=== PATIENT | female | born 1935 | race Caucasian/White ===

== ENCOUNTER 2018-04-13 12:26 | Emergency (ER) | payer MEDICARE, OTHER ==
[~2018-04-13] VITALS: Ht 162.6 cm; Wt 68.0 kg
[~2018-04-13 12:26] MED LIST: ALBU90OI INH; ASPI325 PO; ASPI81CH PO; AVAPRO PO; AZELASTINE137 MCG/0. INH; BREO ELLIPTA 11 EACH IH; CELE200 PO; CEPH500 PO; FURO20 PO; GABA300 PO; HTN MEDS; HYDCHL25 PO; HYDR1TAB94 PO; HYDSUL200 PO; HYDURE500 PO; IRBE150 PO; IRBE75 PO; LATA.005SO BOTHEYES; METO25 PO; METO25ER PO; NITR.6SL; OMEP40CA12 PO; PIRO10 PO; TORSE20 PO; WARF2 MT; WARF2 PO; WARF2.5 PO; WARF3 PO; WARFARIN MT; ZOLP5 PO
[2018-04-13 12:46] LABS: Hematocrit 40.5 % (33.0-51.0); Hemoglobin 13.2 g/dL (11.5-16.0); Mean Corpuscular HGB 37.2 pg (26.0-34.0); Mean Corpuscular HGB Conc 32.6 g/dL (31.5-36.5); Mean Corpuscular Volume 114 fL (80-100); Mean Platelet Volume 10.5 fL (9.1-12.4); Platelet Count 277 K/mm3 (150-400); RDW Coefficient Variation 12.9 % (11.7-14.2); RDW Standard Deviation 54.3 fL (35.1-46.3); Red Blood Cell Count 3.55 M/mm3 (3.80-5.20)
[2018-04-13] MEDS ORDERED: TORSE20 (14:11)
[2018-04-13] MEDS ORDERED: VOLTAREN100 GM (14:11)
[2018-04-13] MEDS ORDERED: Zanaflex4 MG (14:11)
[2018-04-13] MEDS ORDERED: Coumadin2 MG (14:11)
[2018-04-13] MEDS ORDERED: Neurontin300 MG (14:11)
[2018-04-13] MEDS ORDERED: Hydrocodone-Ap1 EA23 (14:11)
[2018-04-13] MEDS ORDERED: HYDURE500 (14:11)
[2018-04-13] MEDS ORDERED: Symbicort 16010.2 GM (14:11)
[2018-04-13] MEDS ORDERED: IMIQUIMOD1 EACH (14:11)
[2018-04-13] MEDS ORDERED: NITR.4SL (14:11)
[2018-04-13] MEDS ORDERED: Coumadin3 MG (14:11)
[2018-04-13] MEDS ORDERED: Avapro150 MG (14:11)
[2018-04-13] MEDS ORDERED: ALBU90OI6 (14:11)
[2018-04-13] MEDS ORDERED: Metoprolol Tart25 MG (14:11)
[2018-04-13 14:13] LABS: Anion Gap 5 mmol/L (6-16); Blood Urea Nitrogen 32 mg/dL (8-24); Bun/Creatinine Ratio 36.9 (12.0-20.0); CO2, Blood 28 mmol/L (21-32); Calcium, Blood 9.1 mg/dL (8.5-10.1); Chloride, Blood 107 mmol/L (98-108); Creatinine, Blood 0.87 mg/dL (0.40-1.00); Glomerular Filtration Rate >60 (60-); Glucose, Blood 79 mg/dL (70-99); Potassium, Blood 4.8 mmol/L (3.5-5.5); Sodium, Blood 140 mmol/L (136-145)
[2018-04-13 14:14] LABS: BASOPHILS PERCENT MAN 0 % (0-2); EOSINOPHILS PERCENT MAN 0 % (0-6); LYMPHOCYTES ABSOLUTE MAN 1.34 K/mm3 (0.84-5.20); LYMPHOCYTES PERCENT MAN 10 % (21-46); MONOCYTES ABSOLUTE MAN 1.07 K/mm3 (0.16-1.47); MONOCYTES PERCENT MAN 8 % (4-13); NEUTROPHILS ABSOLUTE MAN 10.98 K/mm3 (1.96-9.15); SEG NEUTROPHILS PERCENT MAN 82 % (41-73); TOTAL CELLS COUNTED 100
[2018-04-13 14:20] LABS: International Normalized Ratio 3.89; Prothrombin Time Results 37.1 Sec (9.7-11.5)
== END 2018-04-13 14:35 | disposition home or self-care (01) ==
LOC: ER 12:26
PROVIDERS: Emergency Medicine
DX: S09.90XA Unspecified injury of head, initial encounter (principal); S16.1XXA Strain of muscle, fascia and tendon at neck level, initial encounter; F41.9 Anxiety disorder, unspecified; I10 Essential (primary) hypertension; Z79.899 Other long term (current) drug therapy; Z79.01 Long term (current) use of anticoagulants; Z87.891 Personal history of nicotine dependence; W10.9XXA Fall (on) (from) unspecified stairs and steps, initial encounter
CPT/HCPCS: 70450; 71046; 72125; 80048; 85025; 85610; 85730; 99284-25

== ENCOUNTER 2018-09-28 10:40 | Emergency (ER) | payer MEDICARE, OTHER ==
[~2018-09-28] VITALS: Ht 162.6 cm; Wt 72.6 kg
[~2018-09-28 10:40] MED LIST changes: +ALBU90OI6; +Avapro150 MG; +Coumadin2 MG; +Coumadin3 MG; +HYDURE500; +Hydrocodone-Ap1 EA23; +IMIQUIMOD1 EACH; +Metoprolol Tart25 MG; +NITR.4SL; +Neurontin300 MG; +Symbicort 16010.2 GM; +TORSE20; +VOLTAREN100 GM; +Zanaflex4 MG
== END 2018-09-28 12:03 | disposition home or self-care (01) ==
LOC: ER 10:40
DX: S00.03XA Contusion of scalp, initial encounter (principal); M25.512 Pain in left shoulder; G89.29 Other chronic pain; W01.198A Fall on same level from slipping, tripping and stumbling with subsequent striking against other object, initial encounter; Z88.6 Allergy status to analgesic agent; Z79.899 Other long term (current) drug therapy; Z79.01 Long term (current) use of anticoagulants; F41.9 Anxiety disorder, unspecified; I10 Essential (primary) hypertension; I48.91 Unspecified atrial fibrillation
CPT/HCPCS: 36415; 70450; 99284-25

== ENCOUNTER 2018-10-08 11:15 | Emergency (ER) | payer MEDICARE, OTHER ==
[~2018-10-08] VITALS: Ht 154.9 cm; Wt 72.6 kg
[~2018-10-08 11:15] MED LIST changes: -ALBU90OI6; +ALBU90OI6 PO; -Avapro150 MG; +Avapro150 MG PO; -NITR.4SL; +NITR.4SL PO; -Symbicort 16010.2 GM; +Symbicort 16010.2 GM PO; -VOLTAREN100 GM; +VOLTAREN100 GM TOP
== END 2018-10-08 12:07 | disposition home or self-care (01) ==
LOC: ER 11:15
DX: S91.011A Laceration without foreign body, right ankle, initial encounter (principal); I83.91 Asymptomatic varicose veins of right lower extremity; Z23 Encounter for immunization; I10 Essential (primary) hypertension; Z88.6 Allergy status to analgesic agent; Z79.899 Other long term (current) drug therapy; Z79.01 Long term (current) use of anticoagulants; W26.8XXA Contact with other sharp object(s), not elsewhere classified, initial encounter
CPT/HCPCS: 90471; 90714; 99283

== ENCOUNTER → 2018-10-15 | Outpatient (CLI) | payer MEDICARE, OTHER ==
[~2018-10-15] MED LIST changes: +ALBU90OI6; -ALBU90OI6 PO; +Avapro150 MG; -Avapro150 MG PO; +NITR.4SL; -NITR.4SL PO; +Symbicort 16010.2 GM; -Symbicort 16010.2 GM PO; +VOLTAREN100 GM; -VOLTAREN100 GM TOP
[2018-10-15 12:44] LABS: BASOPHILS ABSOLUTE AUTO 0.02 K/mm3 (0.00-0.23); BASOPHILS PERCENT AUTO 0 % (0-2); EOSINOPHILS ABSOLUTE AUTO 0.04 K/mm3 (0.00-0.68); EOSINOPHILS PERCENT AUTO 1 % (0-6); Hematocrit 37.4 % (33.0-51.0); Hemoglobin 12.6 g/dL (11.5-16.0); IMMATURE GRAN ABSOLUTE AUTO 0.11 K/mm3 (0.00-0.10); IMMATURE GRAN PERCENT AUTO 2 % (0-1); LYMPHOCYTES ABSOLUTE AUTO 0.93 K/mm3 (0.84-5.20); LYMPHOCYTES PERCENT AUTO 15 % (21-46); MONOCYTES ABSOLUTE AUTO 0.77 K/mm3 (0.16-1.47); MONOCYTES PERCENT AUTO 13 % (4-13); Mean Corpuscular HGB Conc 33.7 g/dL (31.5-36.5); Mean Corpuscular Volume 104 fL (80-100); Mean Platelet Volume 9.9 fL (9.1-12.4); NEUTROPHILS ABSOLUTE AUTO 4.26 K/mm3 (1.96-9.15); NEUTROPHILS PERCENT AUTO 69 % (41-73); Platelet Count 468 K/mm3 (150-400); RDW Coefficient Variation 14.8 % (11.7-14.2); RDW Standard Deviation 55.2 fL (35.1-46.3); White Blood Cell Count 6.13 K/mm3 (4.00-11.30)
[2018-10-15 12:55] LABS: Albumin, Blood 3.3 g/dL (3.4-5.0); Albumin/Globulin Ratio 0.9 (0.8-1.8); Bilirubin, Total 0.7 mg/dL (0.1-1.0); Bun/Creatinine Ratio 26.9 (12.0-20.0); Calcium, Blood 8.7 mg/dL (8.5-10.1); Creatinine, Blood 1.3 mg/dL (0.40-1.00); Globulin, Blood 3.6 g/dL (2.2-4.0); Potassium, Blood 3.3 mmol/L (3.5-5.5); Total Protein, Blood 6.9 g/dL (6.4-8.2)
== END | disposition home or self-care (01) ==
LOC: LAB EV 12:37 → LAB SHORT 12:37
PROVIDERS: Physician Assistant
DX: I50.9 Heart failure, unspecified (principal); R06.02 Shortness of breath; R60.9 Edema, unspecified
CPT/HCPCS: 80053; 83690; 83880; 85025

== ENCOUNTER 2018-10-25 09:17 | Inpatient (IN) | payer MEDICARE, OTHER ==
[~2018-10-25] VITALS: Ht 154.9 cm; Wt 74.5 kg
[~2018-10-25 09:17] MED LIST changes: -ALBU90OI6; +ALBU90OI6 PO; -Avapro150 MG; +Avapro150 MG PO; -NITR.4SL; +NITR.4SL PO; -Symbicort 16010.2 GM; +Symbicort 16010.2 GM PO; -VOLTAREN100 GM; +VOLTAREN100 GM TOP
[2018-10-25] MEDS ORDERED: WARF2 PO (11:55)
[2018-10-25] MEDS ORDERED: TORSE20 PO (12:28)
[2018-10-25] MEDS ORDERED: POTCHL20ER PO ×2 (12:38→13:47)
[2018-10-25] MEDS ORDERED: Norco 10-325 T1 EACH PO (12:39)
[2018-10-25] MEDS ORDERED: METO25 PO (12:39)
[2018-10-25] MEDS ORDERED: DOCU100 PO (13:44)
[2018-10-25] MEDS ORDERED: METO2.5 PO (13:46)
[2018-10-25] MEDS ORDERED: DICLOFENAC GEL TOP (13:56)
--- NOTE | 2018-10-25 14:51 | NUR ---
PT ADMITTED PT ADMITTED AT 1330. PT IN STABLE CONDITION WITH VSS. PT IN EXTREME PAIN WITH MOVEMENT. PT GIVEN DILADID UPON ADMIT. PT GIVEN SECOND DOSE OF DILADID PROIR TO TRANSFER FOR MRI. PT ORINETED TO ROOM & FAMILY AT BEDSIDE. CALL LIGHT IN REACH. WILL CONTINUE TO MONITOR
[2018-10-25 16:45] LABS: International Normalized Ratio 1.53; Prothrombin Time Results 15.6 Sec (9.7-11.5)
--- NOTE | 2018-10-25 17:23 | NUR ---
SHIFT SUMMARY PT CONTINUES TO HAVE INTENSE PAIN WITH MOVEMENT. PT MEDICATED PER EMAR. MRI OF HIP COMPLETED THIS SHIFT. NO OTHER CHANGES IN ASSESSMENT AT THIS TIME. PT VOIDING WITH THE BEDPAN. CALL LIGHT IN REACH. WILL CONTINUE TO MONITOR UNTIL TURNOVER IS COMPLETE.
[2018-10-25] MEDS ORDERED: WARF3 PO (18:14)
[2018-10-26 02:26] LABS: Source, Urine Catheter
[2018-10-26 02:29] LABS: Bilirubin, Urine Neg (Neg); Blood, Urine Neg (Neg); Glucose Qualitative, Urine Neg (Neg); Ketones, Urine Neg (Neg); Leukocyte Esterase, Urine Neg (Neg); Nitrite, Urine Neg (Neg); Protein, Urine Neg (Neg); Urobilinogen, Urine NORM (Normal)
[2018-10-26 02:45] LABS: Appearance, Urine Clear (Clear); Color, Urine Yellow (P-Yellow)
[2018-10-26 05:16] LABS: BASOPHILS ABSOLUTE AUTO 0.06 K/mm3 (0.00-0.23); BASOPHILS PERCENT AUTO 1 % (0-2); EOSINOPHILS ABSOLUTE AUTO 0.09 K/mm3 (0.00-0.68); EOSINOPHILS PERCENT AUTO 1 % (0-6); Hemoglobin 13.5 g/dL (11.5-16.0); IMMATURE GRAN ABSOLUTE AUTO 0.12 K/mm3 (0.00-0.10); IMMATURE GRAN PERCENT AUTO 1 % (0-1); LYMPHOCYTES PERCENT AUTO 17 % (21-46); MONOCYTES ABSOLUTE AUTO 1.61 K/mm3 (0.16-1.47); MONOCYTES PERCENT AUTO 17 % (4-13); Mean Corpuscular HGB 34.8 pg (26.0-34.0); Mean Corpuscular HGB Conc 31.4 g/dL (31.5-36.5); Mean Platelet Volume 10.6 fL (9.1-12.4); NEUTROPHILS ABSOLUTE AUTO 5.97 K/mm3 (1.96-9.15); NEUTROPHILS PERCENT AUTO 63 % (41-73); Platelet Count 341 K/mm3 (150-400); RDW Coefficient Variation 14.7 % (11.7-14.2); RDW Standard Deviation 59.6 fL (35.1-46.3); Red Blood Cell Count 3.88 M/mm3 (3.80-5.20); White Blood Cell Count 9.45 K/mm3 (4.00-11.30)
[2018-10-26 05:17] LABS: Mean Corpuscular Volume 111 fL (80-100)
[2018-10-26 05:38] LABS: Alanine Aminotransfer (ALT/SGP 17 U/L (12-78); Albumin, Blood 3.1 g/dL (3.4-5.0); Albumin/Globulin Ratio 0.9 (0.8-1.8); Alk Phos 97 U/L (50-136); Anion Gap 6 mmol/L (6-16); Aspartate Aminotrans (AST/SGOT 22 U/L (12-37); Bilirubin, Total 0.9 mg/dL (0.1-1.0); Blood Urea Nitrogen 20 mg/dL (8-24); Bun/Creatinine Ratio 25.5 (12.0-20.0); CO2, Blood 28 mmol/L (21-32); Calcium, Blood 9.4 mg/dL (8.5-10.1); Chloride, Blood 101 mmol/L (98-108); Creatinine, Blood 0.78 mg/dL (0.40-1.00); Globulin, Blood 3.6 g/dL (2.2-4.0); Glomerular Filtration Rate >60 (60-); Glucose, Blood 88 mg/dL (70-99); Sodium, Blood 135 mmol/L (136-145); Total Protein, Blood 6.7 g/dL (6.4-8.2)
[2018-10-26 05:44] LABS: International Normalized Ratio 1.61; Prothrombin Time Results 16.3 Sec (9.7-11.5)
--- NOTE | 2018-10-26 06:18 | NUR ---
SHIFT SUMMARY PT A/O C/O PAIN IN R HIP AND MEDICATED PER EMAR X3. DR RODRIGUEZ ORDERED THOMSON FOR COMFORT/POSITIONING SINCE SHE COULD NOT TOLERATE BED [place] AT ALL FOR URINATING. SHE WAS ABLE TO SLEEP T/O NIGHT AFTER THE THOMSON. CALL LIGHT IN REACH.
--- NOTE | 2018-10-26 11:55 | NUR ---
BOWEL PROTICOL BOWEL PROTICOL INITIATED ON PT. PT HAS NOT HAD A BM FOR 3 DAYS & IS RECIEVING NARCOTICS. PT GIVEN COLACE & MILK OF MAGNESIA THIS SHIFT.
--- NOTE | 2018-10-26 17:45 | NUR ---
SHIFT SUMMARY PT PAIN HAS IMPROVED GREATLY COMPARED TO YESTERDAY. PT HAS NEEDED DILADID TWICE THIS SHIFT. PT TOLERATED SITTING UP ON THE SIDE OF BED WITH THERAPY & TAUGHT EXERCISES TO PRACTICE WHEN IN BED. INSENTIVE SPIROMETER GIVEN TO PT & THIS RN EDUCATED PT ON USE. CATHETER INTACT & DRAINING. NO OTHER CHANGES IN ASSESSMENT AT THIS TIME. WILL CONTINUE TO MONITOR UNTIL TURNOVER IS COMPLETE. VSS.
[2018-10-27 05:43] LABS: International Normalized Ratio 1.63; Prothrombin Time Results 16.5 Sec (9.7-11.5)
--- NOTE | 2018-10-27 07:37 | NUR ---
AT 0655, MARVIN DUNHAM ENTERED ROOM TO JOSH THOMSON. PT STRICTLY REFUSED. NURSE WILL NOTIFY DOCTOR.
--- NOTE | 2018-10-27 07:39 | NUR ---
Rn summary: Patient is alert and oriented. Pt is very painful with any movement. Pt c/o R heel hurting, has dry skin with a crack in her heel, lotion applied and varun mepilex to heels for protection. Pt was medicated x2 for pain with dilaudid 0.5mg and has rested well. Pt has a spencer cath, cath care given. Pt declined having the spencer removed this am due to pain with any movement. Pt very painful to even reposition up in bed, juanito when HOB is lowered down, states it pulls on her Rt leg too much. heels floated. Call light in reach. Report to day shift RN.
[2018-10-27 11:55] LABS: BASOPHILS ABSOLUTE AUTO 0.04 K/mm3 (0.00-0.23); BASOPHILS PERCENT AUTO 0 % (0-2); EOSINOPHILS ABSOLUTE AUTO 0.01 K/mm3 (0.00-0.68); EOSINOPHILS PERCENT AUTO 0 % (0-6); Hematocrit 36.7 % (33.0-51.0); Hemoglobin 12.1 g/dL (11.5-16.0); IMMATURE GRAN ABSOLUTE AUTO 0.12 K/mm3 (0.00-0.10); IMMATURE GRAN PERCENT AUTO 1 % (0-1); LYMPHOCYTES ABSOLUTE AUTO 0.91 K/mm3 (0.84-5.20); LYMPHOCYTES PERCENT AUTO 8 % (21-46); MONOCYTES ABSOLUTE AUTO 1.58 K/mm3 (0.16-1.47); MONOCYTES PERCENT AUTO 13 % (4-13); Mean Corpuscular HGB 34.6 pg (26.0-34.0); Mean Platelet Volume 10.2 fL (9.1-12.4); NEUTROPHILS ABSOLUTE AUTO 9.34 K/mm3 (1.96-9.15); NEUTROPHILS PERCENT AUTO 78 % (41-73); Platelet Count 306 K/mm3 (150-400); RDW Coefficient Variation 14.6 % (11.7-14.2); RDW Standard Deviation 55.6 fL (35.1-46.3)
[2018-10-27 11:56] LABS: Mean Corpuscular Volume 105 fL (80-100)
[2018-10-27 12:12] LABS: Anion Gap 8 mmol/L (6-16); Blood Urea Nitrogen 18 mg/dL (8-24); Bun/Creatinine Ratio 24.4 (12.0-20.0); CO2, Blood 28 mmol/L (21-32); Calcium, Blood 8.4 mg/dL (8.5-10.1); Chloride, Blood 100 mmol/L (98-108); Creatinine, Blood 0.74 mg/dL (0.40-1.00); Glomerular Filtration Rate >60 (60-); Glucose, Blood 109 mg/dL (70-99); Potassium, Blood 3.9 mmol/L (3.5-5.5); Sodium, Blood 136 mmol/L (136-145)
--- NOTE | 2018-10-27 18:01 | NUR ---
SHIFT SUMMARY PT AXO. AFEBRILE AT THIS TIME THOUGH HAD FEVER WITH CHILLS AND ACHE THIS MORNING, MEDICATED PER EMAR, DR SANDERS AWARE. PT HYPOTENSIVE AT 1039, FLUIDS GIVEN AND DR SANDERS AWARE. PT REFUSED THOMSON DC. URINE TO BE COLLECTED FROM THOMSON PER ORDER. BED IN LOW POSITION, CALL LIGHT WITHIN REACH. CHEST X-RAY THIS SHIFT WELL. IV PATENT AND SALINE LOCKED.
--- NOTE | 2018-10-27 19:38 | NUR ---
WHEN TALKING WITH DR SANDERS, THOMSON OKAY TO LEAVE IN TONIGHT AND TRY TO DC AGAIN IN THE MORNING.
--- NOTE | 2018-10-27 20:33 | NUR ---
PTS TEMP 102.3, TYLENOL 650MG GIVEN AND ICE PACK TO ABDOMEN. PTS ROOM TEMPERATURE LOWER (WAS SET AT 85 DEGREES) AND EXTRA BLANKETS REMOVED.
[2018-10-27 22:48] LABS: Source, Urine Catheter
[2018-10-27 22:51] LABS: Bilirubin, Urine Neg (Neg); Blood, Urine 2+ (Neg); Glucose Qualitative, Urine Neg (Neg); Ketones, Urine Neg (Neg); Leukocyte Esterase, Urine 1+ (Neg); Nitrite, Urine Neg (Neg); Protein, Urine Neg (Neg); Specific Gravity, Urine 1.015 (1.003-1.022); Urobilinogen, Urine NORM (Normal)
[2018-10-27 23:02] LABS: Appearance, Urine Clear (Clear); Color, Urine Yellow (P-Yellow)
[2018-10-27 23:03] LABS: Bacteria Rare /hpf; Hyaline Casts 50-100 /lpf (0-2); Mucus Light (0-Heavy); Squamous Epithelial Cells Few /hpf (Few)
--- NOTE | 2018-10-28 05:14 | NUR ---
83 Y/O FEMALE RESTED COMFORTABLY IN BED ALL EVENING. PTS ABDOMEN IS FIRM AND DISTENDED. PT DENIES NEED FOR PAIN OR NAUSEA MEDS. THIS NURSE OBTAINED UA LAST EVENING. PT WAS STARTED ON VANCOMYCIN AND ROCEPHIN LAST EVENING. PT ALERT AND ORIENTED X 3. PTS THOMSON DRAINING CLOUDY YELLOW FLUID. PTS BED ALARM ACTIVATED ALL EVENING, BED LOW POSITION, CALL LIGHT AT SIDE.
[2018-10-28 05:31] LABS: International Normalized Ratio 1.72; Prothrombin Time Results 17.4 Sec (9.7-11.5)
[2018-10-28 07:33] LABS: BASOPHILS ABSOLUTE AUTO 0.03 K/mm3 (0.00-0.23); BASOPHILS PERCENT AUTO 0 % (0-2); EOSINOPHILS ABSOLUTE AUTO 0.07 K/mm3 (0.00-0.68); EOSINOPHILS PERCENT AUTO 1 % (0-6); Hematocrit 36.4 % (33.0-51.0); Hemoglobin 11.9 g/dL (11.5-16.0); IMMATURE GRAN PERCENT AUTO 1 % (0-1); LYMPHOCYTES ABSOLUTE AUTO 0.98 K/mm3 (0.84-5.20); LYMPHOCYTES PERCENT AUTO 12 % (21-46); MONOCYTES ABSOLUTE AUTO 1.32 K/mm3 (0.16-1.47); MONOCYTES PERCENT AUTO 16 % (4-13); Mean Corpuscular HGB 35.3 pg (26.0-34.0); Mean Corpuscular HGB Conc 32.7 g/dL (31.5-36.5); Mean Platelet Volume 10.1 fL (9.1-12.4); NEUTROPHILS ABSOLUTE AUTO 6.04 K/mm3 (1.96-9.15); NEUTROPHILS PERCENT AUTO 71 % (41-73); Platelet Count 281 K/mm3 (150-400); RDW Coefficient Variation 14.2 % (11.7-14.2); RDW Standard Deviation 55.9 fL (35.1-46.3); Red Blood Cell Count 3.37 M/mm3 (3.80-5.20); White Blood Cell Count 8.54 K/mm3 (4.00-11.30)
[2018-10-28 07:39] LABS: Mean Corpuscular Volume 108 fL (80-100)
[2018-10-28 07:47] LABS: Anion Gap 8 mmol/L (6-16); Blood Urea Nitrogen 20 mg/dL (8-24); Bun/Creatinine Ratio 25.7 (12.0-20.0); CO2, Blood 29 mmol/L (21-32); Calcium, Blood 8.1 mg/dL (8.5-10.1); Chloride, Blood 102 mmol/L (98-108); Creatinine, Blood 0.78 mg/dL (0.40-1.00); Glomerular Filtration Rate >60 (60-); Glucose, Blood 82 mg/dL (70-99); Potassium, Blood 3.5 mmol/L (3.5-5.5); Sodium, Blood 139 mmol/L (136-145)
--- NOTE | 2018-10-28 18:24 | NUR ---
SHIFT SUMMARY PT AXO, PLEASANT AND COOPERATIVE WITH CARE. VSS. IV PATENT AND SALINE LOCKED. ALIX MORENO'D AT 1720. PT HAD COMPLETE BEDBATH AND BEDDING CHANGE AT THAT TIME. PT WAS ABLE TO ROLL FROM SIDE TO SIDE WITH MINIMAL PAIN. PT ALSO DANGLED AT EDGE OF BED AND THEN STOOD, TOOK TWO SMALL STEPS FORWARD AND TWO SMALL STEPS BACK. PT HAD BEEN REFUSING REPOSITIONING PRIOR TO THAT. SKIN INTACT. MEDICATED FOR PAIN PER EMAR.
--- NOTE | 2018-10-29 06:03 | NUR ---
83 Y/O FEMALE RESTED COMFORTABLY ALL EVENING. PTS ABLE TO STAND, PIVOT AND TRANSFER X 2 STANDBY ASSIST TO BSC AND VOIDED ADEQUATE AMOUNTS CLEAR YELLOW FLUID. PTS BED IN LOW POSITION, CALL LIGHT AT SIDE. PTS WAS MEDICATED WITH NORCO 750MG X2 THROUGHOUT SHIFT FOR RIGHT HIP DISCOMFORT. PT ALERT AND ORIENTED X3. PTS SPOUSE WAS AT BEDSIDE AT BEGINNING OF SHIFT. PTS BILATERAL FOOT PUSH/PULLS STRONG AND EQUAL.
[2018-10-29 07:01] LABS: BASOPHILS ABSOLUTE AUTO 0.05 K/mm3 (0.00-0.23); BASOPHILS PERCENT AUTO 1 % (0-2); EOSINOPHILS ABSOLUTE AUTO 0.11 K/mm3 (0.00-0.68); EOSINOPHILS PERCENT AUTO 2 % (0-6); Hemoglobin 11.8 g/dL (11.5-16.0); IMMATURE GRAN ABSOLUTE AUTO 0.07 K/mm3 (0.00-0.10); IMMATURE GRAN PERCENT AUTO 1 % (0-1); LYMPHOCYTES ABSOLUTE AUTO 1.05 K/mm3 (0.84-5.20); LYMPHOCYTES PERCENT AUTO 17 % (21-46); MONOCYTES ABSOLUTE AUTO 1.03 K/mm3 (0.16-1.47); MONOCYTES PERCENT AUTO 16 % (4-13); Mean Corpuscular HGB Conc 32.8 g/dL (31.5-36.5); Mean Corpuscular Volume 107 fL (80-100); Mean Platelet Volume 10.2 fL (9.1-12.4); NEUTROPHILS ABSOLUTE AUTO 4.05 K/mm3 (1.96-9.15); NEUTROPHILS PERCENT AUTO 64 % (41-73); Platelet Count 307 K/mm3 (150-400); RDW Coefficient Variation 13.9 % (11.7-14.2); RDW Standard Deviation 54.4 fL (35.1-46.3); Red Blood Cell Count 3.37 M/mm3 (3.80-5.20); White Blood Cell Count 6.36 K/mm3 (4.00-11.30)
[2018-10-29 07:24] LABS: Anion Gap 5 mmol/L (6-16); Blood Urea Nitrogen 26 mg/dL (8-24); CO2, Blood 31 mmol/L (21-32); Calcium, Blood 8.4 mg/dL (8.5-10.1); Chloride, Blood 101 mmol/L (98-108); Creatinine, Blood 0.79 mg/dL (0.40-1.00); Glomerular Filtration Rate >60 (60-); Glucose, Blood 91 mg/dL (70-99); Potassium, Blood 3.3 mmol/L (3.5-5.5); Sodium, Blood 137 mmol/L (136-145)
[2018-10-29 12:42] LABS: International Normalized Ratio 3.26
[2018-10-29 20:24] LABS: Vancomycin, Trough 12.4 ug/mL (5.0-10.0)
--- NOTE | 2018-10-30 06:24 | NUR ---
83 Y/O FEMALE RESTED COMFORTABLY IN BED ALL EVENING. PT ABLE TO STAND, PIVOT AND TRANSFER TO [facility] X2 STANDBY ASSIST. PT HAPPY AND COOPERATIVE. PT TOOK NORCO X1 THIS SHIFT RIGHT HIP PAIN. PT DENIES NAUSEA. PTS BED ALARM INTACT, BED LOW POSITION, CALL LIGHT AT SIDE.
[2018-10-30 07:56] LABS: BASOPHILS ABSOLUTE AUTO 0.04 K/mm3 (0.00-0.23); BASOPHILS PERCENT AUTO 1 % (0-2); EOSINOPHILS ABSOLUTE AUTO 0.13 K/mm3 (0.00-0.68); EOSINOPHILS PERCENT AUTO 2 % (0-6); Hematocrit 35.6 % (33.0-51.0); Hemoglobin 11.4 g/dL (11.5-16.0); IMMATURE GRAN ABSOLUTE AUTO 0.09 K/mm3 (0.00-0.10); IMMATURE GRAN PERCENT AUTO 2 % (0-1); LYMPHOCYTES ABSOLUTE AUTO 1.09 K/mm3 (0.84-5.20); LYMPHOCYTES PERCENT AUTO 20 % (21-46); MONOCYTES ABSOLUTE AUTO 0.93 K/mm3 (0.16-1.47); MONOCYTES PERCENT AUTO 17 % (4-13); Mean Corpuscular Volume 109 fL (80-100); Mean Platelet Volume 10.5 fL (9.1-12.4); NEUTROPHILS PERCENT AUTO 58 % (41-73); Platelet Count 320 K/mm3 (150-400); RDW Standard Deviation 55.6 fL (35.1-46.3); Red Blood Cell Count 3.26 M/mm3 (3.80-5.20); White Blood Cell Count 5.48 K/mm3 (4.00-11.30)
[2018-10-30 08:11] LABS: Anion Gap 4 mmol/L (6-16); Blood Urea Nitrogen 29 mg/dL (8-24); Bun/Creatinine Ratio 33.4 (12.0-20.0); CO2, Blood 32 mmol/L (21-32); Calcium, Blood 8.4 mg/dL (8.5-10.1); Chloride, Blood 100 mmol/L (98-108); Creatinine, Blood 0.87 mg/dL (0.40-1.00); Glomerular Filtration Rate >60 (60-); Glucose, Blood 83 mg/dL (70-99); Potassium, Blood 3.8 mmol/L (3.5-5.5); Sodium, Blood 136 mmol/L (136-145)
[2018-10-30 09:32] LABS: Prothrombin Time Results 37.4 Sec (9.7-11.5)
--- NOTE | 2018-10-30 18:33 | NUR ---
PATIENT IS PLEASANT AND COOPERATIVE WITH CARES. SHE USES CALL LIGHT NEEDED AND IS ABLE TO STAND WITH FFW. SHE HAS BEEN ABLE TO AMBULATE SHORT DISTANCES AROUND HER ROOM WITH HER FFW. FAMILY HAS BEEN PRESENT THROUGH OUT THE DAY. NO NEW ISSUES.
[2018-10-31 04:48] LABS: BASOPHILS ABSOLUTE AUTO 0.06 K/mm3 (0.00-0.23); BASOPHILS PERCENT AUTO 1 % (0-2); EOSINOPHILS ABSOLUTE AUTO 0.19 K/mm3 (0.00-0.68); EOSINOPHILS PERCENT AUTO 3 % (0-6); Hematocrit 36.2 % (33.0-51.0); Hemoglobin 11.7 g/dL (11.5-16.0); IMMATURE GRAN PERCENT AUTO 2 % (0-1); LYMPHOCYTES ABSOLUTE AUTO 1.23 K/mm3 (0.84-5.20); LYMPHOCYTES PERCENT AUTO 21 % (21-46); MONOCYTES ABSOLUTE AUTO 0.86 K/mm3 (0.16-1.47); MONOCYTES PERCENT AUTO 15 % (4-13); Mean Corpuscular HGB Conc 32.3 g/dL (31.5-36.5); Mean Corpuscular Volume 108 fL (80-100); Mean Platelet Volume 10.4 fL (9.1-12.4); NEUTROPHILS PERCENT AUTO 58 % (41-73); Platelet Count 375 K/mm3 (150-400); RDW Coefficient Variation 13.6 % (11.7-14.2); RDW Standard Deviation 54.4 fL (35.1-46.3); Red Blood Cell Count 3.34 M/mm3 (3.80-5.20); White Blood Cell Count 5.84 K/mm3 (4.00-11.30)
--- NOTE | 2018-10-31 04:58 | NUR ---
SHIFT SUMMARY PT SLEPT IN CHAIR DURING THE NIGHT AFTER LYING IN BED FOR A SHORT PERIOD. PT C/O MUSCLE SPASMS IN LEGS AND REQUESTED PAIN MEDICATION, NORCO GIVEN. PT ALSO C/O MORE SWELLING IN LEGS, STATES IT'S GOTTEN WORSE TODAY. NO OTHER C/O'S NOTED DURING THE NIGHT, WILL CONTINUE TO MONITOR.
[2018-10-31 05:03] LABS: International Normalized Ratio 3.15; Prothrombin Time Results 30.1 Sec (9.7-11.5)
[2018-10-31 05:07] LABS: Anion Gap 8 mmol/L (6-16); Blood Urea Nitrogen 32 mg/dL (8-24); Bun/Creatinine Ratio 39.6 (12.0-20.0); CO2, Blood 30 mmol/L (21-32); Calcium, Blood 8.9 mg/dL (8.5-10.1); Chloride, Blood 98 mmol/L (98-108); Creatinine, Blood 0.81 mg/dL (0.40-1.00); Glomerular Filtration Rate >60 (60-); Glucose, Blood 88 mg/dL (70-99); Potassium, Blood 3.9 mmol/L (3.5-5.5); Sodium, Blood 136 mmol/L (136-145)
[2018-10-31] MEDS ORDERED: BISA10S PR (12:23)
[2018-10-31] MEDS ORDERED: DOXY100 PO (12:24)
[2018-10-31] MEDS ORDERED: GABA300 PO (12:26)
[2018-10-31] MEDS ORDERED: NUTRISOURCE FIBER PO (12:26)
== END 2018-10-31 12:17 | DRG 558 ==
LOC: ER 09:17 → MEDS 09:18 → ENPENDDIS 10-31 09:14 → MEDS 10-31 12:17
PROVIDERS: Internal Medicine Endocrinology, Diabetes & Metabolism; Pharmacist; ADMIT Student in an Organized Health Care Education/Training Program
DX: M66.851 Spontaneous rupture of other tendons, right thigh (principal); N39.0 Urinary tract infection, site not specified; N17.9 Acute kidney failure, unspecified; I12.9 Hypertensive chronic kidney disease with stage 1 through stage 4 chronic kidney disease, or unspecified chronic kidney disease; N18.3 Chronic kidney disease, stage 3 (moderate); G47.33 Obstructive sleep apnea (adult) (pediatric); E87.6 Hypokalemia; D72.9 Disorder of white blood cells, unspecified; M79.2 Neuralgia and neuritis, unspecified; S76.911A Strain of unspecified muscles, fascia and tendons at thigh level, right thigh, initial encounter; J44.9 Chronic obstructive pulmonary disease, unspecified; Z79.01 Long term (current) use of anticoagulants; G89.29 Other chronic pain; I48.2 Chronic atrial fibrillation; M06.9 Rheumatoid arthritis, unspecified; M51.36 Other intervertebral disc degeneration, lumbar region; Z87.891 Personal history of nicotine dependence; I95.9 Hypotension, unspecified; R50.9 Fever, unspecified
CPT/HCPCS: 36415; 71046; 72100; 73502; 73721; 74183; 80048; 80053; 80202; 81001; 81003; 83605; 85025; 85610; 85651; 86140; 87040; 87077; 87086; 87186; 94640; 94760; 96374; 96376; 97110; 97116; 97162; 97166; 97530; 97535; 99285-25; A9577; G0378; J0696; J1170; J1650; J3370; J7030; J7050

== ENCOUNTER → 2018-11-26 | Outpatient (CLI) | payer MEDICARE, OTHER ==
[~2018-11-26] MED LIST changes: +BISA10S PR; +DICLOFENAC GEL TOP; +DOCU100 PO; +DOXY100 PO; +METO2.5 PO; +NUTRISOURCE FIBER PO; +Norco 10-325 T1 EACH PO; +POTCHL20ER PO
== END | disposition home or self-care (01) ==
LOC: LAB SHORT 12:14 → LAB EV 12:14
DX: L03.116 Cellulitis of left lower limb (principal)
CPT/HCPCS: 87070; 87077; 87186; 87205

== ENCOUNTER → 2019-03-06 | Outpatient (CLI) | payer MEDICARE, OTHER | END | disposition home or self-care (01) | LOC: PLD 07:48 → LAB SHORT 07:48 | DX: D04.62 Carcinoma in situ of skin of left upper limb, including shoulder (principal); C08.0 Malignant neoplasm of submandibular gland; L82.1 Other seborrheic keratosis; L11.9 Acantholytic disorder, unspecified | CPT/HCPCS: 88305 ==

== ENCOUNTER → 2019-04-09 | Outpatient (CLI) | payer MEDICARE, OTHER ==
[2019-04-09 14:56] LABS: BASOPHILS ABSOLUTE AUTO 0.03 K/mm3 (0.00-0.23); BASOPHILS PERCENT AUTO 0 % (0-2); EOSINOPHILS ABSOLUTE AUTO 0.06 K/mm3 (0.00-0.68); EOSINOPHILS PERCENT AUTO 1 % (0-6); Hematocrit 38.6 % (33.0-51.0); Hemoglobin 12.9 g/dL (11.5-16.0); IMMATURE GRAN ABSOLUTE AUTO 0.27 K/mm3 (0.00-0.10); IMMATURE GRAN PERCENT AUTO 4 % (0-1); LYMPHOCYTES ABSOLUTE AUTO 1.24 K/mm3 (0.84-5.20); LYMPHOCYTES PERCENT AUTO 17 % (21-46); MONOCYTES ABSOLUTE AUTO 0.57 K/mm3 (0.16-1.47); MONOCYTES PERCENT AUTO 8 % (4-13); Mean Corpuscular HGB 35.6 pg (26.0-34.0); Mean Corpuscular HGB Conc 33.4 g/dL (31.5-36.5); Mean Corpuscular Volume 107 fL (80-100); Mean Platelet Volume 9.7 fL (9.1-12.4); NEUTROPHILS ABSOLUTE AUTO 5.24 K/mm3 (1.96-9.15); NEUTROPHILS PERCENT AUTO 71 % (41-73); Platelet Count 336 K/mm3 (150-400); RDW Standard Deviation 58.3 fL (35.1-46.3); Red Blood Cell Count 3.62 M/mm3 (3.80-5.20); White Blood Cell Count 7.41 K/mm3 (4.00-11.30)
[2019-04-09 15:04] LABS: Albumin, Blood 3.2 g/dL (3.4-5.0); Albumin/Globulin Ratio 0.9 (0.8-1.8); Bilirubin, Total 0.6 mg/dL (0.1-1.0); Bun/Creatinine Ratio 24.1 (12.0-20.0); Calcium, Blood 9.1 mg/dL (8.5-10.1); Creatinine, Blood 1.08 mg/dL (0.40-1.00); Globulin, Blood 3.5 g/dL (2.2-4.0); Potassium, Blood 3.6 mmol/L (3.5-5.5); Total Protein, Blood 6.7 g/dL (6.4-8.2)
== END | disposition home or self-care (01) ==
LOC: LAB EV 14:45 → LAB SHORT 14:45
PROVIDERS: Physician Assistant Medical
DX: R20.2 Paresthesia of skin (principal)
CPT/HCPCS: 36415; 80053; 85025

== ENCOUNTER → 2019-05-21 | Outpatient (CLI) | payer MEDICARE, OTHER | END | disposition home or self-care (01) | LOC: LAB EV 15:20 → LAB SHORT 15:20 | DX: L08.9 Local infection of the skin and subcutaneous tissue, unspecified (principal) | CPT/HCPCS: 87070; 87205 ==

== ENCOUNTER 2019-05-26 22:20 | Inpatient (IN) | payer MEDICARE, OTHER ==
[~2019-05-26] VITALS: Ht 154.9 cm; Wt 75.8 kg
[2019-05-26 23:33] LABS: BASOPHILS ABSOLUTE AUTO 0.03 K/mm3 (0.00-0.23); BASOPHILS PERCENT AUTO 0 % (0-2); EOSINOPHILS PERCENT AUTO 1 % (0-6); Hematocrit 36.2 % (33.0-51.0); Hemoglobin 11.9 g/dL (11.5-16.0); IMMATURE GRAN PERCENT AUTO 2 % (0-1); LYMPHOCYTES ABSOLUTE AUTO 1.05 K/mm3 (0.84-5.20); LYMPHOCYTES PERCENT AUTO 8 % (21-46); MONOCYTES ABSOLUTE AUTO 1.12 K/mm3 (0.16-1.47); MONOCYTES PERCENT AUTO 9 % (4-13); Mean Corpuscular HGB 35.5 pg (26.0-34.0); Mean Corpuscular HGB Conc 32.9 g/dL (31.5-36.5); Mean Corpuscular Volume 108 fL (80-100); Mean Platelet Volume 10.5 fL (9.1-12.4); NEUTROPHILS ABSOLUTE AUTO 9.97 K/mm3 (1.96-9.15); NEUTROPHILS PERCENT AUTO 80 % (41-73); Platelet Count 272 K/mm3 (150-400); RDW Coefficient Variation 14.1 % (11.7-14.2); RDW Standard Deviation 55.7 fL (35.1-46.3); Red Blood Cell Count 3.35 M/mm3 (3.80-5.20); White Blood Cell Count 12.47 K/mm3 (4.00-11.30)
[2019-05-26 23:47] LABS: International Normalized Ratio 3.88; Prothrombin Time Results 36.4 Sec (9.7-11.5)
[2019-05-26 23:55] LABS: Albumin, Blood 2.8 g/dL (3.4-5.0); Albumin/Globulin Ratio 0.8 (0.8-1.8); Bilirubin, Total 0.5 mg/dL (0.1-1.0); Bun/Creatinine Ratio 34.5 (12.0-20.0); Calcium, Blood 8.7 mg/dL (8.5-10.1); Creatinine, Blood 1.16 mg/dL (0.40-1.00); Globulin, Blood 3.3 g/dL (2.2-4.0); Magnesium, Blood 2.2 mg/dL (1.6-2.4); Potassium, Blood 4.7 mmol/L (3.5-5.5); Total Protein, Blood 6.1 g/dL (6.4-8.2)
[2019-05-27] MEDS ORDERED: TUMS500 MG PO (02:30)
[2019-05-27] MEDS ORDERED: ALBU90OI INH (02:32)
[2019-05-27] MEDS ORDERED: ALBU2.5V5 INH (02:32)
[2019-05-27] MEDS ORDERED: ACET500 PO (02:33)
[2019-05-27] MEDS ORDERED: MELATONIN5 M1 PO (02:34)
--- NOTE | 2019-05-27 02:36 | NUR ---
ADMISSION: PATIENT WAS RECIEVED FROM ER, A&OX4. REPORTING PAIN IN RIGHT FOOT. PATIENT IS HYPOTENSIVE BUT ASYMPTOMATIC. PATIENT IS ORIENTED TO ROOM AND CALL LANDRY.
[2019-05-27] MEDS ORDERED: CLEAR EYES NATU15 ML BOTHEYES (02:53)
--- NOTE | 2019-05-27 04:37 | NUR ---
PAIN: PATIENT IS HAVING PAIN IN RIGHT LEG 10/10 INTERMITTENT, BP IS 99/63, ONLY FENTANYL IS AVAILABLE FORM SEP. DR BEDOLLA IS NOTIFIED. ORDER TO START NS @ 100 ML/HR AND RECHECK BP IN 20 MIN. RECHECK WAS 105/70, DR BEDOLLA IS UPDATED AND ORDER OBTAINED TO HOLD FENTANYL AT THIS TIME FOR LOW BP AND RECHECK IN AN HOUR.
--- NOTE | 2019-05-27 06:14 | NUR ---
SHIFT SUMMARY: PATIENT CONTINUES TO HAVE LOW BP'S AND PAIN IN RIGHT LEG INTERMITTENTLY. UNABLE TO GIVEN NARCOTICS, PER DR BEDOLLA DUE TO HYPOTENSION. ULTRAM, ICE AND ELEVATION ARE UTILIZED WITH FAIR EFFECT FOR PAIN CONTROL. PATIENT IS ABLE TO SLEEP INTERMITTENTLY, IVF ARE INFUSING PER DR JOHNSON'S ORDER.
[2019-05-27 10:00] LABS: Prothrombin Time Results 37.8 Sec (9.7-11.5)
[2019-05-27 10:03] LABS: International Normalized Ratio 4.05
--- NOTE | 2019-05-27 18:47 | NUR ---
PT. SITTING IN BED, SPOUSE PRESENT IN ROOM. PT. HAD PAIN THAT WAS OUT OF CONTROL UNTIL AROUND 1400. PT. WAS GIVEN ROXICODONE, NEURONTIN, AND LIQUID TYLENOL AROUND 1300. PT. WAS STILL CRYING WITH PAIN SO AT 1416 I GAVE 1MG OF IV DILAUDID. THERE HAVE NOT BEEN ANY COMPLAINTS OF PAIN SINCE, GIVEN THE FACT SHE WENT DOWN FOR A CT SCAN.
[2019-05-28 05:19] LABS: BASOPHILS ABSOLUTE AUTO 0.02 K/mm3 (0.00-0.23); BASOPHILS PERCENT AUTO 0 % (0-2); EOSINOPHILS PERCENT AUTO 0 % (0-6); Hematocrit 36.8 % (33.0-51.0); Hemoglobin 11.6 g/dL (11.5-16.0); IMMATURE GRAN ABSOLUTE AUTO 0.17 K/mm3 (0.00-0.10); IMMATURE GRAN PERCENT AUTO 2 % (0-1); LYMPHOCYTES ABSOLUTE AUTO 0.87 K/mm3 (0.84-5.20); LYMPHOCYTES PERCENT AUTO 8 % (21-46); MONOCYTES ABSOLUTE AUTO 0.29 K/mm3 (0.16-1.47); MONOCYTES PERCENT AUTO 3 % (4-13); Mean Corpuscular HGB 34.5 pg (26.0-34.0); Mean Corpuscular HGB Conc 31.5 g/dL (31.5-36.5); Mean Corpuscular Volume 110 fL (80-100); Mean Platelet Volume 10.3 fL (9.1-12.4); NEUTROPHILS ABSOLUTE AUTO 9.45 K/mm3 (1.96-9.15); NEUTROPHILS PERCENT AUTO 87 % (41-73); Platelet Count 261 K/mm3 (150-400); RDW Coefficient Variation 13.9 % (11.7-14.2); RDW Standard Deviation 55.3 fL (35.1-46.3); Red Blood Cell Count 3.36 M/mm3 (3.80-5.20)
[2019-05-28 05:36] LABS: International Normalized Ratio 3.21; Prothrombin Time Results 30.6 Sec (9.7-11.5)
[2019-05-28 05:45] LABS: Anion Gap 6 mmol/L (6-16); Blood Urea Nitrogen 20 mg/dL (8-24); Bun/Creatinine Ratio 27.2 (12.0-20.0); CO2, Blood 27 mmol/L (21-32); Calcium, Blood 8.8 mg/dL (8.5-10.1); Chloride, Blood 104 mmol/L (98-108); Creatinine, Blood 0.74 mg/dL (0.40-1.00); Glomerular Filtration Rate >60 (60-); Glucose, Blood 155 mg/dL (70-99); Potassium, Blood 4.7 mmol/L (3.5-5.5); Sodium, Blood 137 mmol/L (136-145)
--- NOTE | 2019-05-28 06:17 | NUR ---
SHIFT SUMMARY PATIENT ALERT AND ORIENTED ALL NIGHT. AROUND 0300 PATIENT FELT LIKE SHE WAS WHEEZING AND WAS BECOMING MORE EDEMETOUS DUE TO BEING ON IV FLUID AND NOT TAKING HER DIURETICS THAT SHE NORMALY TAKES AT HOME. FOCUSED ASSESSMENT SHOWED THAT HER LUNG SOUNDS WERE CLEAR AND THERE WAS NO CHANGE IN HER EDEMA FROM THE ASSESSMENT AT THE BEGINNING OF THE SHIFT. DISCUSSED THE SITUATION WITH THE CHARGE NURSE WHO AGREED THAT THE PATIENT WAS STABLE AND WOULD BE FINE TO FINISH OUT HER COURSE OF IV FLUIDS WHICH HAVE NOW FINISHED. WILL BE PASSING HER CONSERNS ABOUT HER HOME MEDS TO THE ONCFLAKO NURSE. IV IN LEFT FOREARM IS PATENT AND FLUSHED. BED IN LOWEST POSITION WITH WHEELS LOCKED. CALL LIGHT WITHIN REACH. REPORT GIVEN TO STEVEN MOON.
--- NOTE | 2019-05-28 18:15 | NUR ---
PT. UP IN CHAIR FOR DINNER, SEVERAL FAMILY MEMBERS IN ROOM VISITING. PT. HAS BEEN MUCH BETTER TODAY AND NOT IN THE PAIN SHE WAS IN YESTERDAY. HAS NOT REPORTED THE BURNING PAIN RUNNING FROM HER FEET TO HER BACK TODAY, PAIN MAINLY IN BLE AND AT 5-6/10 TODAY. AMB TO BR WITH FWW AND 1 PERSON ASSIST. HAD ONE SMALL BM TODAY BUT COLACE STARTED FOR BOWEL CAR. NO OTHER NOTEABLE CHANGES THIS SHIFT.
--- NOTE | 2019-05-29 04:54 | NUR ---
Shift Summary Patient slept intermittently overnight. She had some c/o pain to BLE, which was controlled well with PRN oxycodone. She is oriented but somewhat forgetful, as she did not remember having her vital signs checked 20 minutes after they were checked.
[2019-05-29 05:09] LABS: BASOPHILS ABSOLUTE AUTO 0.02 K/mm3 (0.00-0.23); BASOPHILS PERCENT AUTO 0 % (0-2); EOSINOPHILS ABSOLUTE AUTO 0.02 K/mm3 (0.00-0.68); EOSINOPHILS PERCENT AUTO 0 % (0-6); Hematocrit 35.8 % (33.0-51.0); Hemoglobin 11.5 g/dL (11.5-16.0); IMMATURE GRAN ABSOLUTE AUTO 0.27 K/mm3 (0.00-0.10); IMMATURE GRAN PERCENT AUTO 2 % (0-1); LYMPHOCYTES ABSOLUTE AUTO 1.28 K/mm3 (0.84-5.20); LYMPHOCYTES PERCENT AUTO 10 % (21-46); MONOCYTES ABSOLUTE AUTO 1.12 K/mm3 (0.16-1.47); MONOCYTES PERCENT AUTO 8 % (4-13); Mean Corpuscular HGB 34.3 pg (26.0-34.0); Mean Corpuscular HGB Conc 32.1 g/dL (31.5-36.5); Mean Platelet Volume 10.2 fL (9.1-12.4); NEUTROPHILS ABSOLUTE AUTO 10.64 K/mm3 (1.96-9.15); NEUTROPHILS PERCENT AUTO 80 % (41-73); Platelet Count 297 K/mm3 (150-400); RDW Coefficient Variation 13.9 % (11.7-14.2); RDW Standard Deviation 54.8 fL (35.1-46.3); Red Blood Cell Count 3.35 M/mm3 (3.80-5.20); White Blood Cell Count 13.35 K/mm3 (4.00-11.30)
[2019-05-29 05:10] LABS: Mean Corpuscular Volume 107 fL (80-100)
[2019-05-29 05:22] LABS: International Normalized Ratio 2.4; Prothrombin Time Results 23.5 Sec (9.7-11.5)
[2019-05-29 05:36] LABS: Anion Gap 5 mmol/L (6-16); Blood Urea Nitrogen 25 mg/dL (8-24); Bun/Creatinine Ratio 31.8 (12.0-20.0); CO2, Blood 27 mmol/L (21-32); Calcium, Blood 9.1 mg/dL (8.5-10.1); Chloride, Blood 105 mmol/L (98-108); Creatinine, Blood 0.79 mg/dL (0.40-1.00); Glomerular Filtration Rate >60 (60-); Glucose, Blood 111 mg/dL (70-99); Potassium, Blood 4.6 mmol/L (3.5-5.5); Sodium, Blood 137 mmol/L (136-145)
--- NOTE | 2019-05-29 06:51 | NUR ---
CRITICAL LAB (BLOOD CULTURE) Result of "gram positive cocci in clusters" reported to Susan Jiménez. Order recieved to add vancomycin per pharmacy.
[2019-05-29 07:29] LABS: Vancomycin, Random 8.8 ug/mL
--- NOTE | 2019-05-29 18:04 | NUR ---
PATIENT A/OX4, UP WITH FWW AND SBA TO RESTROOM. 20G IV TO R AC WNL AND SL BETWEEN ABX. VANCO AND ANCEF TO TREAT CELLULITIS. TOLERATING CARDIAC DIET. CALM AND COOPERATIVE WITH CARE. VSS, ON RA. NO ACUTE CHANGES THIS SHIFT.
--- NOTE | 2019-05-30 04:50 | NUR ---
Continues to receive antibiotics as ordered - see MAR for details. Voiced some frustration re taking antibiotics, voiced wanting to get better. Nurse acknowledged her frustration. Has been up to the bathroom a few times with assist, otherwise resting quietly. Call light in reach, displayed ability to use said call light.
[2019-05-30 04:56] LABS: BASOPHILS ABSOLUTE AUTO 0.02 K/mm3 (0.00-0.23); BASOPHILS PERCENT AUTO 0 % (0-2); EOSINOPHILS ABSOLUTE AUTO 0.12 K/mm3 (0.00-0.68); EOSINOPHILS PERCENT AUTO 1 % (0-6); Hematocrit 35.6 % (33.0-51.0); Hemoglobin 11.4 g/dL (11.5-16.0); IMMATURE GRAN ABSOLUTE AUTO 0.37 K/mm3 (0.00-0.10); IMMATURE GRAN PERCENT AUTO 4 % (0-1); LYMPHOCYTES ABSOLUTE AUTO 1.24 K/mm3 (0.84-5.20); LYMPHOCYTES PERCENT AUTO 13 % (21-46); MONOCYTES PERCENT AUTO 11 % (4-13); Mean Corpuscular HGB 34.7 pg (26.0-34.0); Mean Corpuscular Volume 108 fL (80-100); Mean Platelet Volume 10.4 fL (9.1-12.4); NEUTROPHILS ABSOLUTE AUTO 6.47 K/mm3 (1.96-9.15); NEUTROPHILS PERCENT AUTO 70 % (41-73); Platelet Count 295 K/mm3 (150-400); RDW Standard Deviation 55.8 fL (35.1-46.3); Red Blood Cell Count 3.29 M/mm3 (3.80-5.20); White Blood Cell Count 9.22 K/mm3 (4.00-11.30)
[2019-05-30 05:10] LABS: International Normalized Ratio 1.51; Prothrombin Time Results 15.4 Sec (9.7-11.5)
[2019-05-30 05:23] LABS: Albumin, Blood 2.5 g/dL (3.4-5.0); Albumin/Globulin Ratio 0.8 (0.8-1.8); Bilirubin, Total 0.4 mg/dL (0.1-1.0); Bun/Creatinine Ratio 33.3 (12.0-20.0); Calcium, Blood 8.6 mg/dL (8.5-10.1); Creatinine, Blood 1.05 mg/dL (0.40-1.00); Globulin, Blood 3.2 g/dL (2.2-4.0); Phosphorus, Blood 3.1 mg/dL (2.5-4.9); Potassium, Blood 4.3 mmol/L (3.5-5.5); Total Protein, Blood 5.7 g/dL (6.4-8.2)
[2019-05-30] MEDS ORDERED: POTA10T PO (11:17)
[2019-05-30] MEDS ORDERED: Coumadin2 MG PO (11:18)
[2019-05-30] MEDS ORDERED: TORSE20 PO (11:18)
[2019-05-30] MEDS ORDERED: CEPH500 PO (11:20)
[2019-05-30] MEDS ORDERED: Prednisone10 MG PO (11:21)
--- NOTE | 2019-05-30 14:03 | NUR ---
PATIENT D/C'D TO HOME WITH . RX MEDICATIONS FAXED TO [facility]. D/C INSTRUCTIONS AND EDUCATION DISCUSSED WITH PATIENT AND COPY PROVIDED. PATIENT DENIES ANY FURTHER QUESTIONS OR CONCERNS. [facility] TO CALL WITH FOLLOW UP APPOINTMENT.
== END 2019-05-30 14:01 | disposition home health service (06) | DRG 603 ==
LOC: ER 22:20 → MEDS 05-27 02:08 → ENPENDDIS 05-30 09:53 → MEDS 05-30 14:01
PROVIDERS: Emergency Medicine; Family Medicine; Pharmacist; ADMIT Family Medicine
DX: L03.115 Cellulitis of right lower limb (principal); N17.9 Acute kidney failure, unspecified; E86.9 Volume depletion, unspecified; M51.16 Intervertebral disc disorders with radiculopathy, lumbar region; I48.91 Unspecified atrial fibrillation; F41.9 Anxiety disorder, unspecified; N18.3 Chronic kidney disease, stage 3 (moderate); I12.9 Hypertensive chronic kidney disease with stage 1 through stage 4 chronic kidney disease, or unspecified chronic kidney disease; G47.33 Obstructive sleep apnea (adult) (pediatric); J44.9 Chronic obstructive pulmonary disease, unspecified; R62.7 Adult failure to thrive; Z87.891 Personal history of nicotine dependence; Z79.84 Long term (current) use of oral hypoglycemic drugs; Z79.899 Other long term (current) drug therapy
CPT/HCPCS: 36415; 72131; 73701; 80048; 80053; 80202; 83605; 83735; 84100; 84145; 85025; 85610; 85651; 87040; 90686; 96361; 96374; 96375; 97116; 97161; 97166; 97530; 99285-25; A9270; J0690; J1170; J2930; J3370; J7030; J7050; J7512; Q9967

== ENCOUNTER → 2019-06-03 | Outpatient (CLI) | payer MEDICARE, OTHER ==
[~2019-06-03] MED LIST changes: +ACET500 PO; +ALBU2.5V5 INH; +CLEAR EYES NATU15 ML BOTHEYES; +Coumadin2 MG PO; +MELATONIN5 M1 PO; +POTA10T PO; +Prednisone10 MG PO; +TUMS500 MG PO
== END ==
LOC: LAB EV 17:00 → LAB SHORT 17:00
DX: R60.0 Localized edema (principal)
CPT/HCPCS: 87070; 87075; 87077; 87186; 87205

== ENCOUNTER → 2019-11-26 | Outpatient (CLI) | payer MEDICARE, OTHER | END | disposition home or self-care (01) | DX: C44.1192 Basal cell carcinoma of skin of left lower eyelid, including canthus (principal) ==

== ENCOUNTER 2020-01-16 03:23 | Observation (INO) | payer MEDICARE, OTHER ==
[~2020-01-16] VITALS: Ht 162.6 cm; Wt 67.1 kg
[~2020-01-16 03:23] MED LIST changes: -Avapro150 MG PO; +Hydrocodone-Ap1 EA23 PO; -Norco 10-325 T1 EACH PO
[2020-01-16 03:37] LABS: BASOPHILS ABSOLUTE AUTO 0.01 K/mm3 (0.00-0.23); BASOPHILS PERCENT AUTO 0 % (0-2); EOSINOPHILS PERCENT AUTO 0 % (0-6); Hematocrit 38.2 % (33.0-51.0); Hemoglobin 12.8 g/dL (11.5-16.0); IMMATURE GRAN ABSOLUTE AUTO 0.11 K/mm3 (0.00-0.10); IMMATURE GRAN PERCENT AUTO 1 % (0-1); LYMPHOCYTES ABSOLUTE AUTO 0.99 K/mm3 (0.84-5.20); LYMPHOCYTES PERCENT AUTO 6 % (21-46); MONOCYTES ABSOLUTE AUTO 0.63 K/mm3 (0.16-1.47); MONOCYTES PERCENT AUTO 4 % (4-13); Mean Corpuscular HGB 33.9 pg (26.0-34.0); Mean Corpuscular HGB Conc 33.5 g/dL (31.5-36.5); Mean Corpuscular Volume 101 fL (80-100); Mean Platelet Volume 10.5 fL (9.1-12.4); NEUTROPHILS ABSOLUTE AUTO 14.63 K/mm3 (1.96-9.15); NEUTROPHILS PERCENT AUTO 89 % (41-73); Platelet Count 407 K/mm3 (150-400); RDW Coefficient Variation 14.2 % (11.7-14.2); RDW Standard Deviation 52.8 fL (35.1-46.3); Red Blood Cell Count 3.78 M/mm3 (3.80-5.20); White Blood Cell Count 16.37 K/mm3 (4.00-11.30)
[2020-01-16 03:55] LABS: Alanine Aminotransfer (ALT/SGP 24 U/L (12-78); Albumin, Blood 3.2 g/dL (3.4-5.0); Albumin/Globulin Ratio 0.8 (0.8-1.8); Alk Phos 118 U/L (50-136); Anion Gap 8 mmol/L (6-16); Aspartate Aminotrans (AST/SGOT 33 U/L (12-37); Bilirubin, Total 0.4 mg/dL (0.1-1.0); Blood Urea Nitrogen 54 mg/dL (8-24); Bun/Creatinine Ratio 46.6 (12.0-20.0); CO2, Blood 31 mmol/L (21-32); Calcium, Blood 8.4 mg/dL (8.5-10.1); Chloride, Blood 96 mmol/L (98-108); Creatinine, Blood 1.16 mg/dL (0.40-1.00); Globulin, Blood 3.8 g/dL (2.2-4.0); Glomerular Filtration Rate 47 (60-); Glucose, Blood 180 mg/dL (70-99); Potassium, Blood 3.9 mmol/L (3.5-5.5); Sodium, Blood 135 mmol/L (136-145); Troponin I <0.015 ng/mL (0.000-0.040)
[2020-01-16 05:29] LABS: Magnesium, Blood 2.5 mg/dL (1.6-2.4)
[2020-01-16 05:36] LABS: International Normalized Ratio 2.21; Prothrombin Time Results 22.6 Sec (9.7-11.5)
--- NOTE | 2020-01-16 06:43 | NUR ---
TRANSFER NOTE HANDOFF RECEIVED FROM ER NURSE. PT TRANSFERED TO FLOOR VIA GURNEY. PERSONAL POSSESSIONS WITH PT. PT A&O X4, ANXIOUS, INDEPENDENT IN ROOM. AMBULATES W/FWW. DENIES CHEST PAIN AT THIS TIME. CALL BUTTON WITHIN REACH.
--- NOTE | 2020-01-16 18:06 | NUR ---
SUMMARY PT SITTING UP IN THE CHAIR AT THE BEDSIDE EATING DINNER, PT HAS BEEN UP IN THE ROOM WITH A THE WALKER INDEPENDENTLY, DENIES ANY CHEST PAIN, REPORTS MILD DYSPNEA WITH ACTIVITY, POSSIBLY PLAN TO GO HOME IN AM, NO ACUTE CHANGES, WILL CONTINUE TO MONITOR
[2020-01-16] MEDS ORDERED: HYDURE500 PO (18:32)
--- NOTE | 2020-01-16 18:48 | NUR ---
Initial spiritual care note: admits she is concerned and is anxious for some clear answers to her weakness.decline. She reports a strong and loving marriage and is frustrated by her increasing weakness. She appears quite sharp mentally and engaged well in conversation. She says "this time was worse than ever before." She allowed me to pray and offer gentle spiritual direction. [employer] will remain available.
--- NOTE | 2020-01-17 01:45 | NUR ---
RE: PT HEADACHES PT INFORMED PHOTOGRAPHIC SPOTTER THAT SHE FELT SHE WAS HAVING HEADACHES DUE TO MISSING HER BEER
[2020-01-17 04:39] LABS: BASOPHILS PERCENT AUTO 0 % (0-2); EOSINOPHILS PERCENT AUTO 0 % (0-6); Hematocrit 35.9 % (33.0-51.0); Hemoglobin 11.7 g/dL (11.5-16.0); IMMATURE GRAN ABSOLUTE AUTO 0.08 K/mm3 (0.00-0.10); IMMATURE GRAN PERCENT AUTO 1 % (0-1); LYMPHOCYTES ABSOLUTE AUTO 0.98 K/mm3 (0.84-5.20); LYMPHOCYTES PERCENT AUTO 8 % (21-46); MONOCYTES ABSOLUTE AUTO 0.92 K/mm3 (0.16-1.47); MONOCYTES PERCENT AUTO 8 % (4-13); Mean Corpuscular HGB 33.4 pg (26.0-34.0); Mean Corpuscular HGB Conc 32.6 g/dL (31.5-36.5); Mean Corpuscular Volume 103 fL (80-100); Mean Platelet Volume 10.9 fL (9.1-12.4); NEUTROPHILS ABSOLUTE AUTO 10.29 K/mm3 (1.96-9.15); NEUTROPHILS PERCENT AUTO 84 % (41-73); Platelet Count 325 K/mm3 (150-400); RDW Coefficient Variation 14.6 % (11.7-14.2); RDW Standard Deviation 54.6 fL (35.1-46.3); White Blood Cell Count 12.27 K/mm3 (4.00-11.30)
[2020-01-17 04:52] LABS: International Normalized Ratio 2.78; Prothrombin Time Results 28.1 Sec (9.7-11.5)
--- NOTE | 2020-01-17 04:54 | NUR ---
SHIFT SUMMARY ADMITTED FOR CHEST PAIN. FULL CODE. SUSPECT PROBLEM IS GI: ESOPHAGEAL SPASM? & ESOPHAGEAL DYSMOTILITY. PROTONIX ORDERED THIS SHIFT. TELEMETRY: AFIB @ 60'S BPM. SHE IS ON WARFARIN AT HOME. SHE IS ON RA, A&O X4, CARDIAC DIET, INDEPENDENT W/FWW. SHE IS ON HONEY THICK LIQUIDS. SHE DOES HAVE NITRO AT HOME THAT SHE USES 1-2 X'S/YEAR. PT WAS 22.6, BUN WAS 54, WBC'S 16.37, TROPONINS 0.033. AWAITING MORNING LABS. HX: OSTEOARTHRITIS, CHRONIC SHOULDER PAIN, AFIB, CKD3, COPD, ANXIETY. I MEDICATED HER FOR HEADACHE PAIN ONCE THIS SHIFT.
[2020-01-17 04:58] LABS: Bun/Creatinine Ratio 52.5 (12.0-20.0); Calcium, Blood 8.3 mg/dL (8.5-10.1); Creatinine, Blood 1.2 mg/dL (0.40-1.00); Potassium, Blood 4.1 mmol/L (3.5-5.5)
[2020-01-17] MEDS ORDERED: PANT40 PO (14:22)
--- NOTE | 2020-01-17 15:48 | NUR ---
DISCHARGE SUMMARY CECE LEFT BY CAR WITH . PIVS REMOVED, PAPERWORK GONE OVER, MEDS FAXED TO PHARMACY. EDUCATED ON WARFARIN AND POTASSIUM K AND BLOOD DRAWS. FOLLOW UP APPT ALREADY IN PLACE WITH PT'S PCP IN A WEEK, PT ADVISED TO KEEP APPT. BELONGINGS PACKED WITH PT
== END 2020-01-17 15:27 | disposition home or self-care (01) ==
LOC: ER 03:23 → MEDS 03:24 → ENPENDDIS 01-17 12:32 → MEDS 01-17 15:27
PROVIDERS: Emergency Medicine; ADMIT Internal Medicine
DX: R07.9 Chest pain, unspecified (principal); R05 Cough; K21.9 Gastro-esophageal reflux disease without esophagitis; I12.9 Hypertensive chronic kidney disease with stage 1 through stage 4 chronic kidney disease, or unspecified chronic kidney disease; N18.3 Chronic kidney disease, stage 3 (moderate); N17.9 Acute kidney failure, unspecified; J44.9 Chronic obstructive pulmonary disease, unspecified; I48.20 Chronic atrial fibrillation, unspecified; Z79.01 Long term (current) use of anticoagulants; Z88.6 Allergy status to analgesic agent; Z79.899 Other long term (current) drug therapy; G47.30 Sleep apnea, unspecified; Z87.891 Personal history of nicotine dependence
CPT/HCPCS: 36415; 71046; 80048; 80053; 83735; 84484; 85025; 85610; 93005; 93010; 96361; 96374; 99285-25; A9270-GY; C8929; G0378; J3010; J7030; Q9957

== ENCOUNTER → 2020-12-08 | Outpatient (CLI) | payer MEDICARE, OTHER ==
[~2020-12-08] MED LIST changes: +PANT40 PO
== END ==
LOC: LAB SHORT 17:10 → LAB 17:10
DX: L08.0 Pyoderma (principal); Z88.6 Allergy status to analgesic agent
CPT/HCPCS: 87070; 87205

== ENCOUNTER → 2020-12-24 | Outpatient (CLI) | payer MEDICARE, OTHER | LOC: LAB 14:20 → LAB SHORT 14:20 | DX: L08.0 Pyoderma (principal) | CPT/HCPCS: 87070; 87077; 87186; 87205 ==

== ENCOUNTER → 2021-02-23 | Outpatient (CLI) | payer MEDICARE, OTHER | LOC: LAB 14:41 → LAB SHORT 14:41 → LAB EV 14:41 | DX: S81.801A Unspecified open wound, right lower leg, initial encounter (principal) | CPT/HCPCS: 87070; 87075; 87077; 87186; 87205 ==

== ENCOUNTER 2021-03-04 12:35 | Emergency (ER) | payer MEDICARE, OTHER ==
[~2021-03-04] VITALS: Ht 154.9 cm; Wt 63.5 kg
[2021-03-04 14:21] LABS: BASOPHILS ABSOLUTE AUTO 0.06 K/mm3 (0.00-0.23); BASOPHILS PERCENT AUTO 1 % (0-2); EOSINOPHILS ABSOLUTE AUTO 0.06 K/mm3 (0.00-0.68); EOSINOPHILS PERCENT AUTO 1 % (0-6); Hematocrit 39.4 % (33.0-51.0); Hemoglobin 13.2 g/dL (11.5-16.0); IMMATURE GRAN ABSOLUTE AUTO 0.14 K/mm3 (0.00-0.10); IMMATURE GRAN PERCENT AUTO 2 % (0-1); LYMPHOCYTES PERCENT AUTO 16 % (21-46); MONOCYTES ABSOLUTE AUTO 0.99 K/mm3 (0.16-1.47); MONOCYTES PERCENT AUTO 12 % (4-13); Mean Corpuscular HGB 33.1 pg (26.0-34.0); Mean Corpuscular HGB Conc 33.5 g/dL (31.5-36.5); Mean Corpuscular Volume 99 fL (80-100); Mean Platelet Volume 10.3 fL (9.1-12.4); NEUTROPHILS ABSOLUTE AUTO 5.66 K/mm3 (1.96-9.15); NEUTROPHILS PERCENT AUTO 69 % (41-73); Platelet Count 261 K/mm3 (150-400); RDW Coefficient Variation 15.1 % (11.7-14.2); Red Blood Cell Count 3.99 M/mm3 (3.80-5.20); White Blood Cell Count 8.21 K/mm3 (4.00-11.30)
[2021-03-04 14:36] LABS: International Normalized Ratio 2.97; Prothrombin Time Results 30.2 Sec (9.7-11.5)
== END 2021-03-04 15:23 | disposition home or self-care (01) ==
LOC: ER 12:35
PROVIDERS: Emergency Medicine
DX: R04.0 Epistaxis (principal); D68.32 Hemorrhagic disorder due to extrinsic circulating anticoagulants; T45.515A Adverse effect of anticoagulants, initial encounter; I10 Essential (primary) hypertension; I48.91 Unspecified atrial fibrillation; S00.31XA Abrasion of nose, initial encounter; Z88.6 Allergy status to analgesic agent; Z85.3 Personal history of malignant neoplasm of breast; X58.XXXA Exposure to other specified factors, initial encounter
CPT/HCPCS: 30901; 85025; 85610; 99284

== ENCOUNTER 2021-11-12 14:22 | Emergency (ER) | payer MEDICARE, OTHER ==
[~2021-11-12] VITALS: Ht 162.6 cm; Wt 63.5 kg
[2021-11-12 15:54] LABS: Hematocrit 42.4 % (33.0-51.0); Hemoglobin 13.9 g/dL (11.5-16.0); Mean Corpuscular HGB 31.6 pg (26.0-34.0); Mean Corpuscular HGB Conc 32.8 g/dL (31.5-36.5); Mean Corpuscular Volume 96 fL (80-100); Platelet Count 226 K/mm3 (150-400); RDW Coefficient Variation 13.9 % (11.7-14.2); RDW Standard Deviation 49.3 fL (35.1-46.3); White Blood Cell Count 12.45 K/mm3 (4.00-11.30)
[2021-11-12 16:18] LABS: BAND PERCENT MAN 5 % (0-8); BASOPHILS PERCENT MAN 0 % (0-2); EOSINOPHILS ABSOLUTE MAN 0.12 K/mm3 (0.00-0.68); EOSINOPHILS PERCENT MAN 1 % (0-6); LYMPHOCYTES ABSOLUTE MAN 1.24 K/mm3 (0.84-5.20); LYMPHOCYTES PERCENT MAN 10 % (21-46); METAMYELOCYTE ABSOLUTE MAN 0.12 K/mm3 (0.00-0.00); METAMYELOCYTE PERCENT MAN 1 % (0-0); MONOCYTES ABSOLUTE MAN 1.24 K/mm3 (0.16-1.47); MONOCYTES PERCENT MAN 10 % (4-13); MYELOCYTE ABSOLUTE MAN 0.62 K/mm3 (0.00-0.00); MYELOCYTE PERCENT MAN 5 % (0-0); NEUTROPHILS ABSOLUTE MAN 9.08 K/mm3 (1.96-9.15); SEG NEUTROPHILS PERCENT MAN 68 % (41-73); TOTAL CELLS COUNTED 100
[2021-11-12 16:29] LABS: International Normalized Ratio 2.21
== END 2021-11-12 18:17 | disposition home or self-care (01) ==
LOC: ER 14:22
PROVIDERS: Emergency Medicine
DX: R04.0 Epistaxis (principal); I48.91 Unspecified atrial fibrillation; I10 Essential (primary) hypertension; M19.90 Unspecified osteoarthritis, unspecified site; Z79.01 Long term (current) use of anticoagulants; Z79.899 Other long term (current) drug therapy; Z88.6 Allergy status to analgesic agent
CPT/HCPCS: 36415; 85025; 85610; A9270

== ENCOUNTER → 2021-12-16 | Outpatient (CLI) | payer MEDICARE, OTHER | END | disposition home or self-care (01) | LOC: LAB SHORT 12:26 → LAB 12:26 | DX: I83.028 Varicose veins of left lower extremity with ulcer other part of lower leg (principal); L97.929 Non-pressure chronic ulcer of unspecified part of left lower leg with unspecified severity | CPT/HCPCS: 87070; 87075; 87077; 87186; 87205 ==

== ENCOUNTER 2022-01-03 15:30 | Emergency (ER) | payer MEDICARE, OTHER ==
[~2022-01-03] VITALS: Ht 154.9 cm; Wt 64.0 kg
[2022-01-03 16:47] LABS: BASOPHILS ABSOLUTE AUTO 0.07 K/mm3 (0.00-0.23); BASOPHILS PERCENT AUTO 1 % (0-2); EOSINOPHILS ABSOLUTE AUTO 0.16 K/mm3 (0.00-0.68); EOSINOPHILS PERCENT AUTO 2 % (0-6); Hemoglobin 13.1 g/dL (11.5-16.0); IMMATURE GRAN ABSOLUTE AUTO 0.07 K/mm3 (0.00-0.10); IMMATURE GRAN PERCENT AUTO 1 % (0-1); LYMPHOCYTES ABSOLUTE AUTO 1.58 K/mm3 (0.84-5.20); LYMPHOCYTES PERCENT AUTO 19 % (21-46); MONOCYTES ABSOLUTE AUTO 1.18 K/mm3 (0.16-1.47); MONOCYTES PERCENT AUTO 14 % (4-13); Mean Corpuscular HGB 29.7 pg (26.0-34.0); Mean Corpuscular Volume 93 fL (80-100); Mean Platelet Volume 10.7 fL (9.1-12.4); NEUTROPHILS ABSOLUTE AUTO 5.21 K/mm3 (1.96-9.15); NEUTROPHILS PERCENT AUTO 63 % (41-73); Platelet Count 304 K/mm3 (150-400); RDW Coefficient Variation 14.5 % (11.7-14.2); RDW Standard Deviation 49.6 fL (35.1-46.3); Red Blood Cell Count 4.41 M/mm3 (3.80-5.20); White Blood Cell Count 8.27 K/mm3 (4.00-11.30)
[2022-01-03 17:26] LABS: Albumin, Blood 3.1 g/dL (3.4-5.0); Albumin/Globulin Ratio 0.9 (0.8-1.8); Bilirubin, Total 0.7 mg/dL (0.1-1.0); Bun/Creatinine Ratio 26.1 (12.0-20.0); Calcium, Blood 9.2 mg/dL (8.5-10.1); Creatinine, Blood 0.73 mg/dL (0.40-1.00); Globulin, Blood 3.6 g/dL (2.2-4.0); Potassium, Blood 4.1 mmol/L (3.5-5.5); Total Protein, Blood 6.7 g/dL (6.4-8.2)
[2022-01-03] MEDS ORDERED: Bactrim Ds Tab1 EACH PO (19:34)
[2022-01-03] MEDS ORDERED: Norco 5-325 Ta1 EACH PO (19:42)
== END 2022-01-03 19:53 | disposition home or self-care (01) ==
LOC: ER 15:30
PROVIDERS: Physician Assistant
DX: S81.802A Unspecified open wound, left lower leg, initial encounter (principal); L08.9 Local infection of the skin and subcutaneous tissue, unspecified; I10 Essential (primary) hypertension; I48.91 Unspecified atrial fibrillation; Z79.01 Long term (current) use of anticoagulants; Z79.899 Other long term (current) drug therapy; X58.XXXA Exposure to other specified factors, initial encounter
CPT/HCPCS: 36415; 80053; 85025; A9270

== ENCOUNTER → 2022-03-29 | Outpatient (CLI) | payer MEDICARE, OTHER ==
[~2022-03-29] MED LIST changes: +Bactrim Ds Tab1 EACH PO; +Norco 5-325 Ta1 EACH PO
== END ==
LOC: LAB SHORT 14:00
DX: L08.0 Pyoderma (principal)

== ENCOUNTER → 2022-03-29 | Outpatient (CLI) | payer MEDICARE, OTHER | LOC: LAB SHORT 15:12 | DX: D48.5 Neoplasm of uncertain behavior of skin (principal) ==

== ENCOUNTER → 2022-04-27 | Outpatient (CLI) | payer MEDICARE, OTHER ==
[~2022-04-27] MED LIST changes: +LIDO700A20 TOP; +PRED20 PO
== END | disposition home or self-care (01) ==
LOC: LAB SHORT 13:00 → LAB 13:00
DX: L08.0 Pyoderma (principal)
CPT/HCPCS: 87070; 87205

== ENCOUNTER 2022-05-02 21:44 | Emergency (ER) | payer MEDICARE, OTHER ==
[~2022-05-02] VITALS: Ht 152.4 cm; Wt 64.0 kg
[~2022-05-02 21:44] MED LIST changes: -LIDO700A20 TOP; -PRED20 PO
[2022-05-03] MEDS ORDERED: GABA300 PO (04:16)
[2022-05-03] MEDS ORDERED: LIDO700A20 TOP (04:16)
[2022-05-03] MEDS ORDERED: PRED20 PO (04:16)
== END 2022-05-03 06:48 | disposition home or self-care (01) ==
LOC: ER 21:44
DX: S81.801A Unspecified open wound, right lower leg, initial encounter (principal); S81.802A Unspecified open wound, left lower leg, initial encounter; M54.30 Sciatica, unspecified side; R07.9 Chest pain, unspecified; R60.0 Localized edema; I10 Essential (primary) hypertension; I48.91 Unspecified atrial fibrillation; Z88.6 Allergy status to analgesic agent; Z79.899 Other long term (current) drug therapy; Z79.01 Long term (current) use of anticoagulants; X58.XXXA Exposure to other specified factors, initial encounter
CPT/HCPCS: 73502; 84484; 93005; 93010; 93971; 96372; 99284-25; A9270; J1100

== ENCOUNTER 2022-11-23 06:47 | Inpatient (IN) | payer MEDICARE, OTHER ==
[~2022-11-23] VITALS: Ht 160 cm; Wt 60.2 kg
[~2022-11-23 06:47] MED LIST changes: +LIDO700A20 TOP; +PRED20 PO
[2022-11-23 07:37] LABS: Source, Urine Clean Catch
[2022-11-23 07:44] LABS: Appearance, Urine Clear (Clear); Bilirubin, Urine Neg (Neg); Blood, Urine 1+ (Neg); Color, Urine Yellow (P-Yellow); Glucose Qualitative, Urine Neg (Neg); Ketones, Urine 3+ (Neg); Leukocyte Esterase, Urine Neg (Neg); Nitrite, Urine Neg (Neg); Protein, Urine 2+ (Neg); Specific Gravity, Urine 1.015 (1.003-1.022); Urobilinogen, Urine NORM (Normal)
[2022-11-23 07:49] LABS: Bacteria Rare /hpf; Red Blood Cells, Urine 0-2 /hpf (0-2); Squamous Epithelial Cells Few /hpf (Few); White Blood Cells, Urine 0-2 /hpf (0-5)
[2022-11-23 07:50] LABS: Mucus Mod (0-Heavy)
[2022-11-23 08:00] LABS: International Normalized Ratio 1.72; Prothrombin Time Results 17.5 Sec (9.7-11.5)
[2022-11-23 08:01] LABS: BASOPHILS ABSOLUTE AUTO 0.06 K/mm3 (0.00-0.23); BASOPHILS PERCENT AUTO 0 % (0-2); EOSINOPHILS ABSOLUTE AUTO 0.05 K/mm3 (0.00-0.68); EOSINOPHILS PERCENT AUTO 0 % (0-6); Hematocrit 42.3 % (33.0-51.0); IMMATURE GRAN ABSOLUTE AUTO 0.12 K/mm3 (0.00-0.10); IMMATURE GRAN PERCENT AUTO 1 % (0-1); LYMPHOCYTES PERCENT AUTO 5 % (21-46); MONOCYTES ABSOLUTE AUTO 1.37 K/mm3 (0.16-1.47); MONOCYTES PERCENT AUTO 8 % (4-13); Mean Corpuscular HGB 31.3 pg (26.0-34.0); Mean Corpuscular HGB Conc 33.1 g/dL (31.5-36.5); Mean Corpuscular Volume 95 fL (80-100); Mean Platelet Volume 10.7 fL (9.1-12.4); NEUTROPHILS PERCENT AUTO 86 % (41-73); Platelet Count 175 K/mm3 (150-400); RDW Coefficient Variation 14.3 % (11.7-14.2); RDW Standard Deviation 49.4 fL (35.1-46.3); Red Blood Cell Count 4.47 M/mm3 (3.80-5.20)
[2022-11-23 08:23] LABS: Albumin/Globulin Ratio 0.9 (0.8-1.8); Bilirubin, Total 1.8 mg/dL (0.1-1.0); Bun/Creatinine Ratio 25.6 (12.0-20.0); Calcium, Blood 8.2 mg/dL (8.5-10.1); Creatinine, Blood 0.74 mg/dL (0.40-1.00); Globulin, Blood 3.2 g/dL (2.2-4.0); Potassium, Blood 3.6 mmol/L (3.5-5.5); Total Protein, Blood 6.2 g/dL (6.4-8.2)
[2022-11-23 08:32] LABS: Influenza A, PCR NEGATIVE (NEGATIVE); Influenza B, PCR NEGATIVE (NEGATIVE); Resp Syncytial Virus, PCR NEGATIVE (NEGATIVE); SARS-Cov-2 (COVID-19) PCR, MMC NEGATIVE (NEGATIVE)
[2022-11-23] MEDS ORDERED: NEURONTIN300 MG PO (10:59)
[2022-11-23] MEDS ORDERED: JANTOVEN2 MG PO (11:00)
[2022-11-23] MEDS ORDERED: METOPROLOL TART25 MG PO (11:00)
[2022-11-23] MEDS ORDERED: TRAZ50 PO (11:01)
[2022-11-23] MEDS ORDERED: SOAANZ20 M3 PO (11:02)
[2022-11-23 13:53] VITALS: BP 129/60
[2022-11-23 14:56] VITALS: BP 106/62
[2022-11-23] MEDS ORDERED: ONDA4ODT MM (16:36)
[2022-11-23] MEDS ORDERED: HYDACE10B PO (16:45)
[2022-11-23] MEDS ORDERED: Ventolin/Prove6.7 GM INH (16:51)
[2022-11-23] MEDS ORDERED: DICLOFENAC SOD100 G1 TP (17:00)
--- NOTE | 2022-11-23 17:13 | NUR ---
SHIFT SUMMARY PT UP FROM ED. PT ALERT AND ORIENTED, CALLS APPROPRIATELY. PT ON 2L NC. PT VERY WEAK, X2 ASSIST. SPEECH EVALUATED PT, KEEP CARDIAC DIET, THINS, NO STRAWS, MEDS WHOLE WITH APPLESAUCE. PT C/O NAUSA, PRN ZOFRAN ORDERED AND ADMINISTERED. TYLENOL GIVEN FOR 101 FEVER, EFFECTIVE. WILL CONTINUE TO MONITOR CALL LIGHT WITHIN REACH.
[2022-11-23 21:45] VITALS: BP 90/45
[2022-11-23 22:05] VITALS: BP 108/56
[2022-11-24 05:58] LABS: BASOPHILS ABSOLUTE AUTO 0.04 K/mm3 (0.00-0.23); BASOPHILS PERCENT AUTO 0 % (0-2); EOSINOPHILS ABSOLUTE AUTO 0.04 K/mm3 (0.00-0.68); EOSINOPHILS PERCENT AUTO 0 % (0-6); Hematocrit 44.1 % (33.0-51.0); Hemoglobin 14.5 g/dL (11.5-16.0); IMMATURE GRAN ABSOLUTE AUTO 0.05 K/mm3 (0.00-0.10); IMMATURE GRAN PERCENT AUTO 0 % (0-1); LYMPHOCYTES ABSOLUTE AUTO 0.83 K/mm3 (0.84-5.20); LYMPHOCYTES PERCENT AUTO 7 % (21-46); MONOCYTES ABSOLUTE AUTO 1.27 K/mm3 (0.16-1.47); MONOCYTES PERCENT AUTO 11 % (4-13); Mean Corpuscular HGB 31.3 pg (26.0-34.0); Mean Corpuscular HGB Conc 32.9 g/dL (31.5-36.5); Mean Corpuscular Volume 95 fL (80-100); Mean Platelet Volume 11.2 fL (9.1-12.4); NEUTROPHILS ABSOLUTE AUTO 9.49 K/mm3 (1.96-9.15); NEUTROPHILS PERCENT AUTO 81 % (41-73); Platelet Count 164 K/mm3 (150-400); RDW Coefficient Variation 14.4 % (11.7-14.2); RDW Standard Deviation 49.8 fL (35.1-46.3); Red Blood Cell Count 4.63 M/mm3 (3.80-5.20); White Blood Cell Count 11.72 K/mm3 (4.00-11.30)
[2022-11-24 06:20] LABS: International Normalized Ratio 1.85; Prothrombin Time Results 18.8 Sec (9.7-11.5)
[2022-11-24 06:25] LABS: Bun/Creatinine Ratio 32.5 (12.0-20.0); Calcium, Blood 8.4 mg/dL (8.5-10.1); Creatinine, Blood 0.74 mg/dL (0.40-1.00); Magnesium, Blood 1.9 mg/dL (1.6-2.4); Potassium, Blood 3.1 mmol/L (3.5-5.5)
[2022-11-24 06:37] VITALS: BP 108/52
--- NOTE | 2022-11-24 06:40 | NUR ---
SECURITY SME SUMMARY PT A/OX4. PT HAVING SOME ANXIETY AND FOREGETULNESS. PT EXPRESSING EMBARASSMENT OVER PERSONAL CARE AND HAS REQUESTED FEMALE CAREGIVERS FOR PERSONAL CARE. PERIODS OF WAKEFULLNESS/RESTLESSNESS T/O THE NIGHT. PT C/O PAIN IN RIGHT FOOT. CALL TO CHEESE BLENDER. NEW ORDER FOR HOME MED NORCO Q12. PT INCONTINENT WITH LOOSE STOOLS; PUREWICK IN PLACE. TOLERATING MEDS WHOLE IN APPLESAUCE. ABLE TO MAKE NEEDS KNOWN AND CALLS APPROPRIATELY.
[2022-11-24 07:23] VITALS: BP 94/48
[2022-11-24 07:26] VITALS: BP 103/45
--- NOTE | 2022-11-24 14:05 | NUR ---
RN NOTE MS ALLRED HAS SAT UP IN CHAIR FOR MOST OF THE DAY. PUREWICK REMOVED WHEN SHE FIRST GOT UP WITH OT, SHE HAS BEEN CONTINENT OF URINE TO THE BEDSIDE COMMODE. URGENCY OF STOOL - LOOSE BROWN SEMI FORMED STOOL. I.S. WITH FAIR TECHNIQUE TO 500CC. RIGHT LEG TENDER, WARM, RED. R HEEL CRACKED WITH MEPLIX IN PLACE. WORKING WITH PT CURRENTLY. UNSTEADY GAIT UP TO BEDSIDE COMMODE THIS AM, 1-2 PERSON ASSIST. PLAN FOR HOME WITH HOME HEALTH MS ALLRED SAID SHE DOES NOT WANT TO GO TO A S.N.F.
[2022-11-24 14:34] VITALS: BP 121/75
--- NOTE | 2022-11-24 15:43 | NUR ---
MD CALL FURTHER EPISODE OF WARTERY DIARRHEA. DR LOUIS NOTIFIED AND IMODIUM ORDERS PLACED.
--- NOTE | 2022-11-24 16:58 | NUR ---
SHIFT SUMMARY MS ALLRED HAS HAD SEVERAL EPISODES OF LOOSE AND LIQUID STOOL TODAY. IMMODIUM GIVEN. UP TO BSC, CONTINENT OF URINE AND STOOL. RLE RED, TENDER, WARM. MEPILEX TO HEEL AND PHOTO IN CHART. AMBULATED WITH WALKER IN ROOM WITH PT, ALSO WORKED WITH OT AND ST. BED LOW, CALL LIGHT IN REACH.
[2022-11-24 19:37] VITALS: BP 100/67
[2022-11-25 04:14] VITALS: BP 121/51
[2022-11-25 05:18] LABS: International Normalized Ratio 2.97; Prothrombin Time Results 29.3 Sec (9.7-11.5)
--- NOTE | 2022-11-25 05:57 | NUR ---
PATIENT SLEPT WELL THROUGH THE NIGHT, REMAINED ORIENTED X4, 1X ASSIST WITH FWW TO BSC. 1 DOSE OF IMODIUM ADMINITERED. LUNGS ARE DIM WITH SOME CRACKLES THROUGHOUT. NO OTHER ISSUES TO REPORT.
[2022-11-25 07:40] VITALS: BP 111/56
[2022-11-25 16:47] VITALS: BP 113/87
--- NOTE | 2022-11-25 17:43 | NUR ---
CECE WAS A&O X4, PLEASANT AND COOPERATIVE WITH CARE. SHE SAT IN HER CHAIR MOST OF THE DAY. PT DOES NOT TOLERATE SWALLOWING PILLS WELL WITH WATER, USED APPLESAUCE. REDNESS AND SWELLING IN RLE HAS INCREASED THIS SHIFT, PT WAS PLACED IN BED WITH RLE ELEVATED. PT AGREED TO TAKE HER TORSEMIDE IF WE WOULD PLACE A PUREWHICK TO PREVENT TRANSFERRING TO TOILET THROUGHOUT THE NIGHT.
--- NOTE | 2022-11-25 18:05 | NUR ---
PT IS A/OX4, PLEASANT AND COOPERATIVE, THE PT IS UP WITH MINIMAL ASSIST TO THE CHAIR AND BSC. TODAY THE PT WAS WORRIED ABOUT THE INCREASED REDNESS IN HER RIGHT LE. DR. MCKENNA WAS IN ASSESSED THE LE. THE PT WAS UP IN THE CHAIR FOR MOST OF THE DAY AND RETURNED TO THE BED THIS AFTERNOON THE LEG WAS ELEVATED ON PILLOWS AND THE REDNESS/ SWELLING IMPROVED. PT WAS MEDICATED FOR PAIN X1 TODAY. CALL LIGHT IN REACH, WILL CONTINUE TO MONITOR AND ASSESS FOR CHANGES
[2022-11-25 20:19] VITALS: BP 109/59
[2022-11-26 04:47] VITALS: BP 118/68
[2022-11-26 05:25] LABS: BASOPHILS ABSOLUTE AUTO 0.05 K/mm3 (0.00-0.23); BASOPHILS PERCENT AUTO 1 % (0-2); EOSINOPHILS ABSOLUTE AUTO 0.13 K/mm3 (0.00-0.68); EOSINOPHILS PERCENT AUTO 2 % (0-6); Hematocrit 40.6 % (33.0-51.0); Hemoglobin 13.4 g/dL (11.5-16.0); IMMATURE GRAN ABSOLUTE AUTO 0.04 K/mm3 (0.00-0.10); IMMATURE GRAN PERCENT AUTO 1 % (0-1); LYMPHOCYTES ABSOLUTE AUTO 1.18 K/mm3 (0.84-5.20); LYMPHOCYTES PERCENT AUTO 17 % (21-46); MONOCYTES ABSOLUTE AUTO 1.03 K/mm3 (0.16-1.47); MONOCYTES PERCENT AUTO 15 % (4-13); Mean Corpuscular HGB 31.2 pg (26.0-34.0); Mean Corpuscular Volume 95 fL (80-100); Mean Platelet Volume 11.5 fL (9.1-12.4); NEUTROPHILS ABSOLUTE AUTO 4.35 K/mm3 (1.96-9.15); NEUTROPHILS PERCENT AUTO 64 % (41-73); Platelet Count 167 K/mm3 (150-400); RDW Coefficient Variation 13.8 % (11.7-14.2); RDW Standard Deviation 48.3 fL (35.1-46.3); Red Blood Cell Count 4.29 M/mm3 (3.80-5.20); White Blood Cell Count 6.78 K/mm3 (4.00-11.30)
[2022-11-26 05:39] LABS: International Normalized Ratio 3.25; Prothrombin Time Results 31.9 Sec (9.7-11.5)
--- NOTE | 2022-11-26 05:45 | NUR ---
PATIENT HAD INCREASED CONFUSION, ANXIETY, AND RESTLESSNESS THIS SHIFT. VANCO ALLERGY IDENTIFIED BY HIVES, FLUSHED FACE, ITCHY SCALP, CONFUSION, SORE THOAT, AND INCREASED FLUID ON THE LUNGS. RESOLVED WITH IV BENADRYL. INCREASED GENERALIZED WEAKNESS WELL. RLE EDEMA IMPROVING WITH TORSEMIDE. PATIENTS R FOOT/HEAL CRACK IS VERY PAINFUL, RUBBED WITH ABT OINTMENT PER PATIENT REQUEST, HEAL PROTECTION REAPPLIED, AND PO NORCO ADMINISTERED. NO OTHER EVENTS TO REPORT.
[2022-11-26 05:50] LABS: Bun/Creatinine Ratio 30.2 (12.0-20.0); Calcium, Blood 8.6 mg/dL (8.5-10.1); Creatinine, Blood 0.83 mg/dL (0.40-1.00); Magnesium, Blood 1.9 mg/dL (1.6-2.4); Potassium, Blood 4.2 mmol/L (3.5-5.5)
[2022-11-26 07:42] VITALS: BP 110/65
[2022-11-26 15:56] VITALS: BP 124/72
--- NOTE | 2022-11-26 16:51 | NUR ---
Patient is alert & oreinted x4, no acute changes to patient status. New IV ABX Cubicin started this shift. Patient tolerated IV ABX. Vitals stable. Patient c/o pain in right ankle, c/o pain/warmth moving up leg. Marked outline of redness. Plan is to stay t/o weekend. Patient worked with NEWS ANALYST today. SBAx1 when ambulating, OOB for meals. No other concerns. Will continue plan of care.
[2022-11-26 18:17] VITALS: BP 140/94
--- NOTE | 2022-11-26 18:24 | NUR ---
AFIB PATIENT C/O HEART RATE IRREGULAR. RATE AT 1800 WAS 104 AND IRREGULAR. METOPROLOL GIVEN PER EMAR. PATIENT DENIES ANY SHORTNESS OF BREATH OR CHEST PAIN.
[2022-11-26 19:47] VITALS: BP 111/80
[2022-11-27 04:24] VITALS: BP 118/80
--- NOTE | 2022-11-27 05:41 | NUR ---
PATIENT SLEPT WELL THROUGH THE NIGHT WITHOUT CONFUSION. PAIN TO RLE/HEAL TREATED PER MAR AND RUBBED WITH LOTION AND ABT OINTMENT PER PATIENT REQUEST. REDDNESS REMAINS UNCHANGED BYT EDEMA IS VERY MINIMAL AT THIS POINT. FOAM AND HEAL PROTECTORS USED WELL. VSS. LUNGS ARE DIM BUT CLEAR, WITH PRODUCTIVE COUGH.
[2022-11-27 08:00] VITALS: BP 107/64
[2022-11-27 11:41] LABS: International Normalized Ratio 2.3
[2022-11-27 15:51] VITALS: BP 114/84
--- NOTE | 2022-11-27 18:07 | NUR ---
SHIFT SUMMARY NO ACUTE CHANGES DURING SHIFT. PT ALERT AND ORIENTED, CALLS APPROPRIATELY. PT REMAINS ON RA, SBA WITH WALKER TO BATHROOM. PT AMBULATED IN HALLWAYS X 2 WITH FWW. PLAN TO CONTINUE IV ABX X 3 MORE DAYS. FOOT ELEVATED WHILE IN BED, REDNESS AND SWELLING IMPROVING. WILL CONTINUE TO MONITOR. CALL LIGHT WITHIN REACH.
[2022-11-27 19:08] VITALS: BP 100/74
[2022-11-28 04:44] VITALS: BP 132/61
[2022-11-28 04:56] LABS: BASOPHILS ABSOLUTE AUTO 0.05 K/mm3 (0.00-0.23); BASOPHILS PERCENT AUTO 1 % (0-2); EOSINOPHILS ABSOLUTE AUTO 0.13 K/mm3 (0.00-0.68); EOSINOPHILS PERCENT AUTO 2 % (0-6); Hematocrit 44.3 % (33.0-51.0); Hemoglobin 14.8 g/dL (11.5-16.0); IMMATURE GRAN ABSOLUTE AUTO 0.09 K/mm3 (0.00-0.10); IMMATURE GRAN PERCENT AUTO 1 % (0-1); LYMPHOCYTES ABSOLUTE AUTO 1.29 K/mm3 (0.84-5.20); LYMPHOCYTES PERCENT AUTO 16 % (21-46); MONOCYTES PERCENT AUTO 12 % (4-13); Mean Corpuscular HGB 31.5 pg (26.0-34.0); Mean Corpuscular HGB Conc 33.4 g/dL (31.5-36.5); Mean Corpuscular Volume 94 fL (80-100); NEUTROPHILS ABSOLUTE AUTO 5.48 K/mm3 (1.96-9.15); NEUTROPHILS PERCENT AUTO 68 % (41-73); Platelet Count 213 K/mm3 (150-400); RDW Coefficient Variation 13.4 % (11.7-14.2); RDW Standard Deviation 46.8 fL (35.1-46.3); White Blood Cell Count 8.04 K/mm3 (4.00-11.30)
[2022-11-28 05:21] LABS: International Normalized Ratio 1.78; Prothrombin Time Results 18.1 Sec (9.7-11.5)
[2022-11-28 05:30] LABS: Bun/Creatinine Ratio 33.9 (12.0-20.0); Calcium, Blood 9.2 mg/dL (8.5-10.1); Creatinine, Blood 0.71 mg/dL (0.40-1.00); Potassium, Blood 3.1 mmol/L (3.5-5.5)
--- NOTE | 2022-11-28 06:19 | NUR ---
PT REFUSED EVENING MEDS "I HAVE HAD ENOUGH MEDS TODAY", DID REQUEST IV BENADYL FOR ITCHING AND SLEEP. PT SLEPT MOST OF SHIFT. CALLS FOR NEEDS.
[2022-11-28 07:59] VITALS: BP 111/83
[2022-11-28 17:01] VITALS: BP 129/97
--- NOTE | 2022-11-28 17:46 | NUR ---
SHIFT SUMMARY NO ACUTE CHANGES DURING SHIFT. PT ALERT AND ORIENTED, CALLS APPROPRIATELY. PT REMAINS ON ROOM AIR, X 1 ASSIST WITH WALKER TO BATHROOM AND IN HALLWAY. PT MEDICATED WITH PRN PAIN MEDS X 1 TODAY, EFFECTIVE. CONTINUE IV ABX. WILL CONITNUE TO MONITOR. CALL LIGHT WITHIN REACH.
[2022-11-28 19:30] VITALS: BP 115/64
[2022-11-29 04:29] VITALS: BP 128/82
[2022-11-29 05:03] LABS: BASOPHILS ABSOLUTE AUTO 0.08 K/mm3 (0.00-0.23); BASOPHILS PERCENT AUTO 1 % (0-2); EOSINOPHILS ABSOLUTE AUTO 0.12 K/mm3 (0.00-0.68); EOSINOPHILS PERCENT AUTO 2 % (0-6); Hematocrit 44.5 % (33.0-51.0); Hemoglobin 14.9 g/dL (11.5-16.0); IMMATURE GRAN ABSOLUTE AUTO 0.11 K/mm3 (0.00-0.10); IMMATURE GRAN PERCENT AUTO 2 % (0-1); LYMPHOCYTES ABSOLUTE AUTO 1.38 K/mm3 (0.84-5.20); LYMPHOCYTES PERCENT AUTO 20 % (21-46); MONOCYTES ABSOLUTE AUTO 0.85 K/mm3 (0.16-1.47); MONOCYTES PERCENT AUTO 12 % (4-13); Mean Corpuscular HGB 31.4 pg (26.0-34.0); Mean Corpuscular HGB Conc 33.5 g/dL (31.5-36.5); Mean Corpuscular Volume 94 fL (80-100); Mean Platelet Volume 11.3 fL (9.1-12.4); NEUTROPHILS ABSOLUTE AUTO 4.55 K/mm3 (1.96-9.15); NEUTROPHILS PERCENT AUTO 64 % (41-73); Platelet Count 205 K/mm3 (150-400); RDW Coefficient Variation 13.4 % (11.7-14.2); RDW Standard Deviation 46.5 fL (35.1-46.3); Red Blood Cell Count 4.74 M/mm3 (3.80-5.20); White Blood Cell Count 7.09 K/mm3 (4.00-11.30)
[2022-11-29 05:15] LABS: International Normalized Ratio 1.57; Prothrombin Time Results 16.1 Sec (9.7-11.5)
[2022-11-29 05:37] LABS: Bun/Creatinine Ratio 39.1 (12.0-20.0); Calcium, Blood 9.3 mg/dL (8.5-10.1); Creatinine, Blood 0.64 mg/dL (0.40-1.00); Potassium, Blood 3.7 mmol/L (3.5-5.5)
[2022-11-29 07:44] VITALS: BP 117/79
--- NOTE | 2022-11-29 15:05 | NUR ---
AM ASSESSMENT I WAS PRESENT DURING AND AGREE WITH THE STUDENT NURSE DUNG'S AM ASSESSMENT AND DOCUMENTATION ON THIS PATIENT
[2022-11-29 15:22] VITALS: BP 93/73
[2022-11-29 20:19] VITALS: BP 96/57
[2022-11-30 07:07] LABS: International Normalized Ratio 1.75; Prothrombin Time Results 17.8 Sec (9.7-11.5)
[2022-11-30] MEDS ORDERED: POTA20LUD PO (12:46)
[2022-11-30] MEDS ORDERED: VISBIOME 112.51 EACH PO (12:47)
[2022-11-30] MEDS ORDERED: CEFD300 PO (12:47)
--- NOTE | 2022-11-30 13:44 | NUR ---
Brief visit with pt just prior to d/c. I reviewed pt's POLST, completed in 2014 with her. She reports that she does not desire intermediate manager life support but would want CPR attempted and short term ventilatory support in an effort to return to her prior level of function at that time. If that was not possible, she states she would want symptom control/supportive care. She did not want to complete an updated POLST. She reported having a NUGENT and was anxious for d/c. She states she wanted to be d/c'd days ago. Her juan luis is coming to bring her home once released.
--- NOTE | 2022-11-30 14:50 | NUR ---
pt discharged PT AND FAMILY VERBALIZED UNDERSTANDING OF THE DC INSTRUCTIONS. THE PTS PRESCRIPTIONS WERE FAXED TO [facility]. A FOLLOW UP APPOINTMENT WAS MADE PRIOR TO DC WITH HER PCP. THE PT WAS TRANSFERED VIA WHEELCHAIR ACCOMPANIED BY THE OPERATIONS LEADER AND HER FAMILY
== END 2022-11-30 13:12 | disposition home or self-care (01) | DRG 871 ==
LOC: ER 06:47 → MEDS 11:38 → ENPENDDIS 11-30 11:52 → MEDS 11-30 13:12
PROVIDERS: Emergency Medicine; ADMIT Internal Medicine
DX: A41.89 Other specified sepsis (principal); I50.33 Acute on chronic diastolic (congestive) heart failure; J69.0 Pneumonitis due to inhalation of food and vomit; J96.01 Acute respiratory failure with hypoxia; J98.11 Atelectasis; T88.6XXA Anaphylactic reaction due to adverse effect of correct drug or medicament properly administered, initial encounter; L03.115 Cellulitis of right lower limb; E87.3 Alkalosis; Q21.12 Patent foramen ovale; I48.91 Unspecified atrial fibrillation; Z20.822 Contact with and (suspected) exposure to COVID-19; M19.012 Primary osteoarthritis, left shoulder; M19.011 Primary osteoarthritis, right shoulder; M81.0 Age-related osteoporosis without current pathological fracture; G89.4 Chronic pain syndrome; G47.00 Insomnia, unspecified; I34.0 Nonrheumatic mitral (valve) insufficiency; I07.1 Rheumatic tricuspid insufficiency; R65.20 Severe sepsis without septic shock; E87.6 Hypokalemia; J44.9 Chronic obstructive pulmonary disease, unspecified; I73.9 Peripheral vascular disease, unspecified; I11.0 Hypertensive heart disease with heart failure; K59.00 Constipation, unspecified; M06.9 Rheumatoid arthritis, unspecified; R13.12 Dysphagia, oropharyngeal phase; I25.10 Atherosclerotic heart disease of native coronary artery without angina pectoris; F41.9 Anxiety disorder, unspecified; B96.89 Other specified bacterial agents as the cause of diseases classified elsewhere; T36.8X5A Adverse effect of other systemic antibiotics, initial encounter; I87.2 Venous insufficiency (chronic) (peripheral); Z79.891 Long term (current) use of opiate analgesic; Z88.6 Allergy status to analgesic agent; Z88.1 Allergy status to other antibiotic agents; Z85.828 Personal history of other malignant neoplasm of skin; Z90.49 Acquired absence of other specified parts of digestive tract; Z90.710 Acquired absence of both cervix and uterus; Z98.890 Other specified postprocedural states; Z96.652 Presence of left artificial knee joint; Z87.448 Personal history of other diseases of urinary system; Z85.3 Personal history of malignant neoplasm of breast; Z99.81 Dependence on supplemental oxygen; Z79.01 Long term (current) use of anticoagulants; Z79.899 Other long term (current) drug therapy
CPT/HCPCS: 0241U; 36415; 71046; 73600; 80048; 80053; 81001; 83605; 83735; 83880; 84145; 85025; 85610; 87040; 87449; 92526; 92610; 93005; 93010; 94760; 96361; 96365; 96375; 97110; 97116; 97162; 97166; 97530; 97535; 99285-25; A9270; J0696; J0878; J1200; J2060; J2405; J2543; J3370; J7030; J7050